=== PATIENT | male | born 1955 | race Caucasian/White ===

== ENCOUNTER 2024-07-24 09:47 | Emergency (ER) | payer OTHER, MEDICARE, SELFPAY ==
[2024-07-24 09:59] VITALS: BP 141/72; PULSE 73; RESP 18; TEMP 36.4; O2SAT 97
--- NOTE | 2024-07-24 10:31 | ED.SKABFB ---
HPI - Skin/Abscess/Foreign Bdy General Chief complaint: Skin/Abscess/Foreign Body Stated complaint: INSECT BITES ON LEGS Time Seen by Provider: 07/24/24 10:15 Source: patient Mode of arrival: ambulatory Limitations: no limitations History of Present Illness HPI narrative: Artemio is an 68-year-old male patient presenting to the clinic today with complaints possible insect bites all over his legs and on his right upper arm. He reports that these are very itchy. 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 Related Data Home Medications Medication Instructions Recorded Confirmed allopurinol 300 mg tablet mg 07/24/24 apremilast 30 mg tablet (Otezla) mg PO 07/24/24 hydrochlorothiazide 12.5 mg tablet mg 07/24/24 lisinopril 40 mg tablet mg 07/24/24 simvastatin 10 mg tablet mg 07/24/24 Allergies Allergy/AdvReac Type Severity Reaction Status Date / Time No Known Allergies Allergy Verified 07/24/24 10:13 Review of Systems Review of Systems: Pertinent positives per HPI. Patient denies any fever, chills, rash, headache, visual changes, dizziness, cough, runny nose, sore throat, shortness of breath, chest pain, palpitations, nausea, vomiting, diarrhea, constipation, abdominal pain, or any urinary issues. PMFSH Comments At the time of my signature, I reviewed and agree with the nursing past medical, surgical, social, and family history. There is no relevant family history pertinent to the patient complaint. Exam Narrative: General: Well-developed, well nourished, in no apparent distress Head: Normocephalic, atraumatic. Cardio: Regular rate and rhythm, s1 and s2 normal, no murmur appreciated. Resp: Clear to auscultation bilaterally, no rhonchi, rales, wheezing or rubs. Integumentary: [place], warm, and dry, red raised itchy papular bumps all over legs and on his right elbow, no drainage Course Course Emergency Course: Portions of this record may have been created with voice recognition software. Level of Care: Express Care Visit Vital Signs Vital signs: Vital Signs Temperature 36.4 C L 07/24/24 09:59 Pulse Rate 73 07/24/24 09:59 Respiratory Rate 18 07/24/24 09:59 Blood Pressure 141/72 H 07/24/24 09:59 Pulse Oximetry 97 07/24/24 09:59 Oxygen Delivery Room Air 07/24/24 09:59 Temperature 36.4 C L 07/24/24 09:59 Pulse Rate 73 07/24/24 09:59 Respiratory Rate 18 07/24/24 09:59 Blood Pressure 141/72 H 07/24/24 09:59 Pulse Oximetry 97 07/24/24 09:59 Oxygen Delivery Room Air 07/24/24 09:59 Vital signs reviewed MDM - Skin/Abscess/Foreign Bdy MDM Narrative Medical decision making narrative: At the time of visit patient is resting comfortably on the exam table. Patient appears to be nontoxic. Plan: I suspect patient has contact dermatitis/possible hive-like reaction. Will place patient on 10 day course prednisone, triamcinolone cream and recommend he take Pepcid. He also may take Benadryl as needed for the itching. Supportive measures were discussed with the patient and they voiced understanding discharge instructions and agrees to treatment plan. Return precautions reviewed Differential Diagnosis Differential diagnosis: Likely abscess of skin or subcutaneous tissue, viral exanthem, dermatophytosis, urticaria, herpes zoster, allergic reaction to drug, cellulitis, eczema, insect bites, impetigo and contact dermatitis Discharge Plan Discharge Clinical Impression: Contact dermatitis Patient Disposition: Home, Self-Care Condition: Stable Instructions: Antibiotic Form, Contact Dermatitis (ED) Additional Instructions: Apply triamcinolone cream as directed Take prednisone as directed Avoid hot showers May apply calamine lotion to rash Avoid scratching and this causes rash to spread May take benadryl 25-50mg every 6 hours as needed for itching. May take 20-40 mg of famotidine daily-this is a histamine jose luis and may he
== END 2024-07-24 10:48 | disposition home or self-care (01) ==
PROVIDERS: Emergency Provider Nurse Practitioner Family; PCP Internal Medicine
DX: L25.9 Unspecified contact dermatitis, unspecified cause (principal); E78.00 Pure hypercholesterolemia, unspecified; I10 Essential (primary) hypertension; L40.50 Arthropathic psoriasis, unspecified
CPT/HCPCS: 99213; G0463

== ENCOUNTER 2025-02-24 09:48 | Emergency (ER) | payer OTHER, MEDICARE, SELFPAY ==
--- NOTE | ~2025-02-24 | XR_ITS ---
EXAMINATION: XR shoulder RT min 2V DATE: 02/24/2025 10:17 INDICATION: Anterior right shoulder pain post fall TECHNIQUE: AP internally and externally rotated, AP oblique externally rotated and transscapular Y vi ews of the right shoulder were obtained. COMPARISON: None FINDINGS: Normal alignment. No fracture.Mild glenohumeral osteoarthritis with cephalad predominant mild nonuni form joint space narrowing. Moderate acromioclavicular osteoarthritis with small inferiorly directed osteophytes. There are is also a small subacromial spur. Soft tissues are unremarkable. Visualized po rtion of the right lung are clear with no evident pleural effusion. IMPRESSION: Mild right glenohumeral and moderate acromioclavicular osteoarthritis. No acute osseous abnormality. Reviewed, dictated and finalized at location A.
--- NOTE | 2025-02-24 09:55 | ED.UPPEXIN ---
HPI - Extremity Injury (Upper) General Chief Complaint: Extremity Injury, Upper Stated Complaint: fall Time Seen by Provider: 02/24/25 09:55 Source: patient Mode of arrival: ambulatory Limitations: no limitations History of Present Illness HPI narrative: Artemio is a 69-year-old male patient presenting to the clinic today with complaints of right shoulder/humerus pain after falling around 9:00 a.m. this morning. He reports he fell on the Thursday ground. States he was caring and some wound and tripped and landed on the right side. He denies any other injury. Related Data Home Medications ?Medication ?Instructions ?Recorded ?Confirmed ?Last Taken ?Type allopurinol 300 mg tablet mg 07/24/24 Unknown History apremilast 30 mg tablet (Otezla) mg PO 07/24/24 Unknown History hydrochlorothiazide 12.5 mg tablet mg 07/24/24 Unknown History lisinopril 40 mg tablet mg 07/24/24 Unknown History simvastatin 10 mg tablet mg 07/24/24 Unknown History Allergies Allergy/AdvReac Type Severity Reaction Status Date / Time No Known Allergies Allergy Verified 02/24/25 09:49 Review of Systems Review of Systems: Pertinent positives per HPI. Patient denies any fever, chills, rash, headache, visual changes, dizziness, cough, shortness of breath, chest pain, palpitations, nausea, vomiting, diarrhea, constipation, abdominal pain, or any urinary issues. PMFSH Comments At the time of my signature, I reviewed and agree with the nursing past medical, surgical, social, and family history. There is no relevant family history pertinent to the patient complaint. Exam Narrative: General: Well-developed, well nourished, in no apparent distress Head: Normocephalic, atraumatic. Cardio: Regular rate and rhythm, s1 and s2 normal, no murmur appreciated. Resp: Clear to auscultation bilaterally, no rhonchi, rales, wheezing or rubs. Musculoskeletal: No deformity, tender to palpation over the right anterior shoulder and the right proximal humerus, unable to lift his arm above his head without significant pain, does have good range of motion with posterior reach and cross-arm, muscle strength strong and equal, peripheral pulse strong, no edema, no cyanosis, normal gait and station Course Course Emergency Course: Portions of this record may have been created with voice recognition software. Level of Care: Express Care Visit Vital Signs Vital signs: Vital Signs Temperature 36.3 C L 02/24/25 10:04 Pulse Rate 71 02/24/25 10:04 Respiratory Rate 16 02/24/25 10:04 Blood Pressure 141/69 H 02/24/25 10:04 Pulse Oximetry 97 02/24/25 10:04 Oxygen Delivery Room Air 02/24/25 10:04 Temperature 36.3 C L 02/24/25 10:04 Pulse Rate 71 02/24/25 10:04 Respiratory Rate 16 02/24/25 10:04 Blood Pressure 141/69 H 02/24/25 10:04 Pulse Oximetry 97 02/24/25 10:04 Oxygen Delivery Room Air 02/24/25 10:04 Vital signs reviewed MDM - Extremity Injury (Upper) MDM Narrative Medical decision making narrative: At the time of visit patient is resting comfortably on the exam table. Patient appears to be nontoxic. Diagnostics: X-ray of the right shoulder is negative for any sign of fracture or malalignment. Does show glenohumeral and AC joint osteoarthritis Plan: I suspect patient has a right shoulder strain/osteoarthritis. Supportive measures were discussed with the patient and they voiced understanding discharge instructions and agrees to treatment plan. Return precautions reviewed Differential Diagnosis Differential diagnosis: Likely dislocation of shoulder, fracture of humerus and other (Shoulder sprain, shoulder contusion) Imaging Data Radiologist's impression: ITS Impressions Shoulder X-Ray 02/24/25 10:24 IMPRESSION: Mild right glenohumeral and moderate acromioclavicular osteoarthritis. No acute osseous abnormality. Discharge Plan Discharge Clinical Impression: Osteoarthritis of AC (acromioclavicular) joint Sprain of right shoulder Qualifiers: Encounter type: initial encounter Shoulder sprain type: unspecified sprain Qualified Code(s): S43.401A - Unspecified sprain of right shoulder joint, initial encounter Patient Disposition: Home, Self-Care Condition: Stable Instructions: Antibiotic Form Additional Instructions: X-rays negative for any sign of fracture or malalignment of the right shoulder. You do have some AC joint osteoarthritis May wear arm sling for 3 days for comfort Rest and ice Tylenol/motrin for pain as discussed. May apply Aspercreme, blue emu, or lidocaine to the affected area to help alleviate pain Follow up with your PCP if symptoms persist more than 1 week. Patient Language: Colombian Prescriptions: No Action simvastatin 10 mg tablet allopurinol 300 mg tablet lisinopril 40 mg tablet hydrochlorothiazide 12.5 mg tablet Otezla 30 mg tablet PO prednisone 10 mg tablet 10 mg PO DAILY Qty: 30 0RF Rx Instructions: 60mg po daily on day 1, 40mg po daily on days 2-4, 30mg po daily on days 5-6, 20mg po daily on days 7-8, 10mg po daily on days 9-10 triamcinolone acetonide 0.1 % cream 1 applic topical BID 7 Days Qty: 30 0RF Follow-up/Referrals: [place],Braeden Heath MD [Primary Care Provider] - Time of Disposition: 10:29 Quality NIHSS Nursing Documentation ED NIHSS nursing documentation: reviewed/agree
[2025-02-24 10:04] VITALS: BP 141/69; PULSE 71; RESP 16; TEMP 36.3; O2SAT 97
--- OUTSIDE RECORDS SUMMARY | 2025-02-24 10:04 | XMS_ITS | Continuity of Care Document ---
Author Organization [facility] Address [address] [place] [address] Phone Care Team Providers Care Door Operator Name Role Phone Braeden Macdonald MD Unavailable Unavailable Allergies, Adverse Reactions, Alerts Substance Reaction Status Criticality No Known Drug Allergies Other Active No I nformation Medications Medication Instructions Dosage Effective Dates (start - stop) Status Comments AndroGel 20.25 mg/1.25 gram per pump act. (1.62 %) transdermal gel apply 1 pump to each upper arm and shoulders daily ( 2 pumps/day) - Active 75gm bottle/month ; faxed to [facility] [phone] allopurinol 300 mg tablet take 1.5 tablet by oral route every day 450 MG - Active hydrochlorothiazide 12.5 mg tablet take 1 tablet by oral route every day 12.5 MG - Active simvastatin 10 mg tablet take 1 tablet b y oral route every day in the evening 10 MG - Active lisinopril 40 mg tablet take 1 tablet by oral route every day 40 MG - Active sildenafil 50 mg tablet take 1 tablet by oral route every day as needed approximately 1 hour before sexual activity 50 MG - Active Patient to use Good Rx BIN [id number]; PCN GDC; GRP DR33; Otezla 30 mg tablet take 1 tablet by oral route every day - Active AndroGel 20.25 mg/1.25 gram per pump act. (1.62 %) transdermal gel apply 1 pump to each upper arm and shoulders daily ( 2 pumps/day) - No Longer Active 75gm bottle/month ; faxed to [facility] [phone] Procedures Procedure Date ROUTINE VENIPUNCTURE IL Pt inelig neg scrn depres FALL RISK ASSESSMENT DOC'D PRES/ABSN URINE INCON ASSESS PREVENTATIVE-EST: 65 & OVER BODY MASS INDEX DOCD SYST BP LT 130 MM HG DIAST BP < 80 MM HG IMMUN ADMIN (INC PERCUTANEOUS) SINGLE, F IRST INJ RIV3 VACCINE NO PRESERV IM CBC, INC PLATELETS AND DIFFERENTIAL COMPREHEN METABOLIC PANEL CMP 4 LIPID PANEL PSA, TOTAL TESTOSTERONE, TOTAL URIC ACID, (S) BASIC METABOLIC PANEL(BMP) CBC, INC PLATELETS AND DIFFERENTIAL TESTOSTERONE, TOTAL Pt inelig neg scrn depres OFFICE [id number] BODY MASS INDEX DOCD SYST BP >= 140 MM HG6 IT DIAST BP < 80 MM HG ROUTINE VENIPUNCTURE IL CBC, INC PLATELETS AND DIFFERENTIAL TESTOSTERONE, TOTAL ROUTINE VENIPUNCTURE IL CBC, INC PLATELETS AND DIFFERENTIAL COMPREHEN METABOLIC PANEL CMP 3 LIPID PANEL PSA, TOTAL TESTOSTERONE, TOTAL URIC ACID, (S) FALL RISK ASSESSMENT DOC'D PRES/ABSN URINE INCON ASSESS Pt inelig neg scrn depres IMMUN ADMIN (INC PERCUTANEOUS) SINGLE, F IRST INJ Flu Vac, quad (RIV4), Preservative And A ntibiotic Free IM IMMUN ADMIN (INC PERCUTANEOUS) EACH ADDT L Pneumococcal Conjugate Vaccine (PCV20) S PREVENTATIVE-EST: 65 & OVER BODY MASS INDEX DOCD SYST BP GE 130 - 139MM HG DIAST BP < 80 MM HG ROUTINE VENIPUNCTURE IL Pt inelig neg scrn depres OFFICE [id number] BODY MASS INDEX DOCD SYST BP >= 140 MM HG6 IT DIAST BP < 80 MM HG Pt inelig neg scrn depres FALL RISK ASSESSMENT DOC'D PRES/ABSN URINE INCON ASSESS PREVENTATIVE-EST: 65 & OVER BODY MASS INDEX DOCD SYST BP >= 140 MM HG6 IT DIAST BP 80-89 MM HG IMMUN ADMIN (INC PERCUTANEOUS) SINGLE, F IRST INJ Flu Vac, quad (RIV4), Preservative And A ntibiotic Free IM CBC, INC PLATELETS AND DIFFERENTIAL COMPREHEN METABOLIC PANEL CMP HEMOGLOBIN A1C HGA1C, GLYCO LIPID PANEL PSA, TOTAL TESTOSTERONE, TOTAL URIC ACID, (S) ROUTINE VENIPUNCTURE Pt inelig neg scrn depres OFFICE [id number] BODY MASS INDEX DOCD SYST BP GE 130 - 139MM HG DIAST BP < 80 MM HG ANTINUCLEAR ANTIBODIES (SOPHY) BASIC METABOLIC PANEL(BMP) CYCLIC CITRULLINE PEPTIDE (CCP) 022 HEMOGLOBIN A1C HGA1C, GLYCO RHEUMATOID FACTOR: QN RBC SED RATE, AUTOMATED URIC ACID, (S) ROUTINE VENIPUNCTURE TESTOSTERONE, TOTAL ROUTINE VENIPUNCTURE IMMUN ADMIN (INC PERCUTANEOUS) SINGLE, F IRST INJ FLU VAC NO PRSV 4 ENZO, 0.5mL DOSAGE Pt inelig neg scrn depres PREVENTATIVE-EST: 40-64 BODY MASS INDEX DOCD SYST BP >= 140 MM HG6 IT DIAST BP < 80 MM HG CBC, INC PLATELETS AND DIFFERENTIAL COMPREHEN METABOLIC PANEL CMP LIPID PANEL PSA, TOTAL ROUTINE VENIPUNCTURE HEMOGLOBIN A1C HGA1C, GLYCO URIC ACID, (S) TESTOSTERONE, TOTAL Pt inelig neg scrn depres OFFICE [id number] BODY MASS INDEX DOCD SYST BP GE 130 - 139MM HG DIAST BP < 80 MM HG BASIC METABOLIC PANEL(BMP) TESTOSTERONE, TOTAL URIC ACID, (S) ROUTINE VENIPUNCTURE BASIC METABOLIC PANEL(BMP) URIC ACID, (S) ROUTINE VENIPUNCTURE IMMUN ADMIN (INC PERCUTANEOUS) SINGLE, F IRST INJ FLU VAC NO PRSV 4 ENZO, 0.5mL DOSAGE Pt inelig neg scrn depres PREVENTATIVE-EST: 40-64 BODY MASS INDEX DOCD SYST BP GE 130 - 139MM HG DIAST BP < 80 MM HG CBC, INC PLATELETS AND DIFFERENTIAL COMPREHEN METABOLIC PANEL CMP 0 LIPID PANEL PSA, TOTAL TESTOSTERONE, TOTAL URIC ACID, (S) ROUTINE VENIPUNCTURE Pt inelig neg scrn depres BASIC METABOLIC PANEL(BMP) URIC ACID, (S) ROUTINE VENIPUNCTURE OFFICE [id number] BODY MASS INDEX DOCD SYST BP GE 130 - 139MM HG DIAST BP 80-89 MM HG Pt inelig neg scrn depres IMMUN ADMIN (INC PERCUTANEOUS) SINGLE, F IRST INJ FLU VAC NO PRSV 4 ENZO, 0.5mL DOSAGE PREVENTATIVE-EST: 40-64 BODY MASS INDEX DOCD SYST BP GE 130 - 139MM HG DIAST BP < 80 MM HG CBC, INC PLATELETS AND DIFFERENTIAL COMPREHEN METABOLIC PANEL [facility] 9 HEMOGLOBIN A1C HGA1C, GLYCO LIPID PANEL PSA, TOTAL URIC ACID, (S) ROUTINE VENIPUNCTURE Advance Directives Directive Yes / No Effective Date File Name Life Support Not Answered N/A N/A Intubation Not Answered N/A N/A Antibiotics Not Answered N/A N/A IV Fluid Support Not Answered N/A N/A Tube Feed Not Answered N/A N/A Other Directive N/A N/A WARNING:The information contained in this section is historical and is provided for information only and does not constitute a legal document or any assurance that the information is still accurate. Please verify the information with the almodovar of the legal document before using it for clinical purposes. Encounters Encounter Description Practice Location Reason(s) For Visit Diagnoses Date Provider Providers Copied on Encounter [facility], [address], [place], [place], [address] , [place] tel: [phone] [facility] No Information 5 English Deras. [address] [place], [place], [id number], [place]. tel:[phone] [facility], [address], [place], [place], [address] , [place] tel: [phone] [facility] No Information 4 English Deras. [address] [place], [place], [address], [place]. tel:[phone] PREVENTATIVE -EST: 65 & OVER [facility], [address], [place], [place], [address] , [place] tel: [phone] [facility] PX (chief complaint) Annual physical examScreening PSA (prostate specific antigen)Other testicular hypofunctionGout, unspecified cause, unspecified chronicity, unspecified siteBenign essential hypertensionPsori atic arthritisBody mass index [BMI] 30.0-30.9, adultEncounter for immunization 4 English Deras. [address] [place], [place], [address], [place]. tel:[phone] Referring Provider: [place], [address] . tel:[phone] [facility], [address], [place], [place], [address] , tel: [phone] [facility] No Information [address] [place] [address], [id number], [place]. tel:[phone] Referring Provider: [place], [address] . tel:[phone] [facility], [address], [place], [place], [address] , tel: [phone] [facility] Blood tests for routine general physical examinationBenign essential hypertension 4 English Deras. [address] [place], [place], [address], . tel:[phone] [facility], [address], [place], [place], [address] , tel: [phone] [facility] No Information 4 English Deras. [address] [place], [place], [address], . tel:[phone] [email or web address] [facility], [address], [place], [place], [address] , tel: [phone] [facility] No Information 4 Abraham Akil. [address] [place] [address], [id number], [place]. tel:[phone] Referring Provider: Braeden Macdonald, [address] [place], [address] . tel:[phone] OFFICE SUFME-ZYU-KF TAILED [facility], [address], [place], [place], [address] , tel: [phone] [facility] Chr conditions (chief complaint) Body mass index [BMI] 31.0-31.9, adultTesticular hypofunctionBenig n essential hypertensionPsori atic arthritisGout, unspecified cause, unspecified chronicity, unspecified siteChange in bowel habits 4 English Deras. [address] [place], [place], [address], [place]. tel:[phone] Referring Provider: [place], [address] . tel:[phone] [email or web address] [facility], [address], [place], [place], [address] , tel: [phone] [facility] No Information 3 Abraham Akil. [address], [id number], . tel:[phone] Referring Provider: [place], [address] . tel:[phone] [facility], [address], [place], [place], [address] , tel:[phone] [facility] Abnormal CBCTesticular hypofunction 3 English Deras. [address] [place], [place], [address], . tel:[phone] Referring Provider: Braeden Macdonald, [place], [address] . tel:[phone] [facility], [address], [place], [place], [address] , tel:[phone] [facility] No Information 3 Abraham Barnard. [address] [place] [address], [id number], . tel:[phone] Referring Provider: Braeden Macdonald, [place], [address] . tel:[phone] PREVENTATIVE -EST: 65 & OVER [facility], [address], [place], [place], [address] , tel:[phone] [facility] px (chief complaint) Body mass index [BMI] 29.0-29.9, adultEncounter for general adult medical examination without abnormal findingsGout, unspecified cause, unspecified chronicity, unspecified siteOther testicular hypofunctionBenig n essential hypertensionPsori atic arthritis 3 English Deras. [address] [place], [address], [place]. tel:[phone] Referring Provider: [place], [address] . tel:[phone] OFFICE MEFHG-[id number]-EH TAILED [facility], [address], [place], [place], [address] , tel: [phone] [facility] Chronic conditions (chief complaint)c hronic conditinss (chief complaint) Body mass index [BMI] 32.0-32.9, adultBenign essential hypertensionOther testicular hypofunctionPsori atic arthritis Feb-0 3 English Deras. [address] [place], [place], [address], [place]. tel:[phone] Referring Provider: [place], [address] . tel:[phone] [employer], [address], [place], [place], [address] , [place] tel: [phone] [facility] No Information 2 English Deras. [address] [place], [place], [address], [place]. tel:[phone] PREVENTATIVE -EST: 65 & OVER [employer], [address], [place], [place], [address] , [place] tel: [phone] [facility] preventive exam (chief complaint)p x (chief complaint) Body mass index [BMI] 32.0-32.9, adultEncounter for general adult medical examination without abnormal findingsGout, unspecified cause, unspecified chronicity, unspecified siteArthralgia, unspecified jointPsoriasisBen ign essential hypertensionEncou nter for screening for malignant neoplasm of colon 2 English Deras. [address] [place], [place], [address], [place]. tel:[phone] Referring Provider: Braeden Macdonald, [place], [address] . tel:[phone] [facility], [address], [place], [place], [address] , [place] tel: [phone] [facility] Benign essential hypertensionHyper glycemiaChronic gout without tophus, unspecified cause, unspecified siteHyperlipidemi a, unspecified hyperlipidemia typeScreening for prostate cancerOther testicular hypofunction 2 English Deras. [address] [place], [place], [address], [place]. tel:[phone] Referring Provider: Braeden Macdonald, [address] [place], [address] . tel:[phone] OFFICE [id number]-UZQ-WA TAILED [facility], [address], [place], [place], [address] , [place] tel: [phone] [facility] 6 mo followup of chronic conditions (chief complaint)C hronic Conditions (chief complaint) Gout, unspecified cause, unspecified chronicity, unspecified siteBenign hypertensionPure hypercholesterole miaOther testicular hypofunctionBody mass index [BMI] 30.0-30.9, adultPsoriasisArt hralgia, unspecified joint Mar-2 2 Cochran Kimberlee. [address] [place], [place], [address], . tel:[phone] Referring Provider: [place], [address] . tel:[phone] [facility], [address], [place], [place], [address] , tel: [phone] [facility] Other testicular hypofunction Sep-0 1 English Deras. [address] [place] [address], [id number], . tel:[phone] Referring Provider: [place], [address] . tel:[phone] PREVENTATIVE -EST: 40-64 [facility], [address], [place], [place], [address] , tel: [phone] [facility] px (chief complaint) Encounter for general adult medical examination without abnormal findingsOther testicular hypofunctionBenig n hypertensionGout, unspecified cause, unspecified chronicity, unspecified sitePure hypercholesterole miaBody mass index (BMI) 29.0-29.9, adult Sep- 1 English Deras. [address] [place], [address], . tel:[phone] Referring Provider: [place], [address] . tel:[phone] [facility], [address], [place], [place], [address] , tel: [phone] [facility] Benign hypertensionPure hypercholesterole miaSpecial screening for malignant neoplasm of prostateGout, unspecified cause, unspecified chronicity, unspecified siteHyperglycemia , unspecifiedOther testicular hypofunction Sep- 1 English Deras. [address] [place], [place], [address], . tel:[phone] Referring Provider: [place], [address] . tel:[phone] OFFICE KLLNN-YYX-XL TAILED [facility], [address], [place], [place], [address] , tel: [phone] Marg[facility] 6 mo chronic conditions (chief complaint)C hronic Conditions (chief complaint) Gout, unspecified cause, unspecified chronicity, unspecified siteBenign hypertensionOther and unspecified hyperlipidemiaOth er testicular hypofunctionBody mass index (BMI) 30.0-30.9, adult Mar-3 - 1 Dimas Mohan. [address] [place], [place], [address], . tel:[phone] Referring Provider: Braeden Macdonald [address] [place], [address] . tel:[phone] [facility], [address], [place], [place], [address] , tel: [phone] [facility] No Information Jan-2 1 English Deras. [address] [place] [address], [id number], . tel:[phone] [facility], [address], [place], [place], [address] , tel: [phone] [facility] Benign hypertensionGout, unspecified cause, unspecified chronicity, unspecified site Jul-2 0 English Deras. [address] [place], [place], [address], . tel:[phone] Referring Provider: [place], [address] . tel:[phone] PREVENTATIVE -EST: 40-64 [facility], [address], [place], [place], [address] , tel: [phone] [facility] PX (chief complaint) Encounter for general adult medical examination without abnormal findingsGout, unspecified cause, unspecified chronicity, unspecified siteOther testicular hypofunctionBenig n hypertensionOther and unspecified hyperlipidemiaBod y mass index (BMI) 30.0-30.9, adultDupuytren's contracture of both hands Jul- 0 English Deras. [address] [place], [address], [place]. tel:[phone] Referring Provider: [place], [address] . tel:[phone] [facility], [address], [place], [place], [address] , tel: [phone] [facility] Benign hypertensionPure hypercholesterole miaOther testicular hypofunctionGout, unspecified cause, unspecified chronicity, unspecified siteEncounter for blood test for routine general physical examinationScreen ing for prostate cancerEncounter for long-term (current) use of other medications 0 English Deras. [address] [place], [address], . tel:[phone] Referring Provider: [place], [address] . tel:[phone] OFFICE LZADN-KIK-WS TAILED [employer], [address], [place], [place], [address] , tel: [phone] [facility] Chronic conditions (chief complaint) Body mass index (BMI) 31.0-31.9, adultBenign hypertensionGout, unspecified cause, unspecified chronicity, unspecified siteOther and unspecified hyperlipidemiaOth er testicular hypofunctionPsori asis 0 English Deras. [address] [place], [address], [place]. tel:[phone] Referring Provider: [place], [address] . tel:[phone] PREVENTATIVE -EST: 40-64 [employer], [address], [place], [place], [address] , tel: [phone] [facility] PX (chief complaint) Body mass index (BMI) 31.0-31.9, adultAdult general medical examBenign hypertensionGout, unspecified cause, unspecified chronicity, unspecified siteOther and unspecified hyperlipidemiaSki n lesion English Dears. [address] [place], [place], [address], . tel:[phone] Referring Provider: Braeden Macdonald, [place], [address] . tel:[phone] [employer], [address], [place], [place], [address] , tel: [phone] [facility] HyperglycemiaBeni gn hypertensionGout, unspecified cause, unspecified chronicity, unspecified siteOther and unspecified hyperlipidemiaAdu lt general medical examScreening for malignant neoplasm of prostate English Dersa. [address] [place], [address], . tel:[phone] Referring Provider: [place], [address] . tel:[phone] [facility], [address], [place], [place], [address] , tel: [phone] [facility] Chronic gout without tophus, unspecified cause, unspecified siteEssential (primary) hypertensionOther and unspecified hyperlipidemiaPso riasis English Deras. [address] [place], [address], . tel:[phone] Referring Provider: [place], [address] . tel:[phone] [facility], [address], [place], [place], [address] , tel: [phone] [facility] Encounter for general adult medical examination without abnormal findingsChronic gout without tophus, unspecified cause, unspecified siteOther and unspecified hyperlipidemiaOth er testicular hypofunctionEssen tial (primary) hypertension 8 English Deras. [address] [place], [address], . tel:[phone] Referring Provider: [place], [address] . tel:[phone] [facility], [address], [place], [place], [address] , tel: [phone] [facility] Benign hypertensionGout, unspecified cause, unspecified chronicity, unspecified siteOther and unspecified hyperlipidemiaScr eening for malignant neoplasm of prostateEncounter for long-term (current) use of other medications English Deras. [address] [place], [address], [place]. tel:[phone] Referring Provider: [place], [address] . tel:[phone] [facility], [address], [place], [place], [address] , tel: [phone] [facility] Body mass index (BMI) 31.0-31.9, adultOlecranon bursitis of right elbowBenign essential hypertensionGout, unspecified cause, unspecified chronicity, unspecified siteTrigger little finger of right handTrigger finger, left little finger English Deras. [address] [place], [address], [place]. tel:[phone] Referring Provider: [place], [address] . tel:[phone] [facility], [address], [place], [place], [address] , tel: [phone] [facility] Gout, unspecified cause, unspecified chronicity, unspecified site English Deras. [address] [place], [address], [place]. tel:[phone] Referring Provider: [place], [address] . tel:[phone] [facility], [address], [place], [place], [address] , tel: [phone] [facility] Chronic gout without tophus, unspecified cause, unspecified siteLong term use of drug English Deras. [address] [place], [address], [place]. tel:[phone] Referring Provider: Braeden Macdonald, [place], [address] . tel:[phone] [employer], [address], [place], [place], [address] , tel: [phone] [facility] Other testicular hypofunctionBenig n essential hypertensionHyper lipidemia, unspecified hyperlipidemia typeChronic gout without tophus, unspecified cause, unspecified site 8 English Deras. [address] [place], [address], [place]. tel:[phone] Referring Provider: Braeden Macdonald, [place], [address] . tel:[phone] [facility], [address], [place], [place], [address] , tel: [phone] [facility] Gout of ankle, unspecified cause, unspecified chronicity, unspecified lateralityOlecran on bursitis of right elbow English Deras. [address] [place], [address], . tel:[phone] Referring Provider: [place], [address] . tel:[phone] [facility], [address], [place], [place], [address] , tel: [phone] [facility] Left ankle pain, unspecified chronicity English Deras. [address] [place], [address], [place]. tel:[phone] Referring Provider: [place], [address] . tel:[phone] [email or web address] [facility], [address], [place], [place], [address] , tel: [phone] [facility] Encounter for general adult medical examination without abnormal findingsBenign essential hypertensionOther testicular hypofunctionPsori asis of nail English Deras. [address] [place], [address], [place]. tel:[phone] Referring Provider: Braeden Macdonald, [address] [place], [address] . tel:[phone] [facility], [address], [place], [place], [address] , tel: [phone] [facility] Other testicular hypofunctionBenig n essential hypertensionHyper lipidemia, unspecified hyperlipidemia typePsoriasis of nailSnoring 7 English Deras. [address] [place], [place], [address], . tel:[phone] Referring Provider: Braeden Macdonald, [address] [place], [address] . tel:[phone] [email or web address] [facility], [address], [place], [place], [address] , tel: [phone] [facility] Other testicular hypofunction 6 Johan Brito. [address] [place], [place], [address], [place]. tel:[phone] Referring Provider: Daryl Merino, [address] [place], [address] . tel:[phone] [facility], [address], [place], [place], [address] , tel: [phone] [facility] Elevated fasting glucoseHyperchole sterolemiaBenign essential hypertensionTinea unguiumTesticular hypofunctionEncou nter for general adult medical examination without abnormal findingsAbrasionS noringEncounter for immunizationSpeci al screening for malignant neoplasm of colon 6 Johan Brito. [address] [place], [place], [address], [place]. tel:[phone] Referring Provider: Daryl Merino, [address] [place], [address] . tel:[phone] [facility], [address], [place], [place], [address] , tel: [phone] [facility] Benign essential hypertensionEncou nter for long-term (current) use of other medicationsElevat ed fasting glucoseHyperchole sterolemiaOther testicular hypofunctionSpeci al screening for malignant neoplasm of prostate May- 8 6 Johan Brito. [address] [place], [place], [address], [place]. tel:[phone] Referring Provider: Daryl Merino, [address] [place], [address] . tel:[phone] [facility] [address], [place], [place], [address] , tel: [phone] [place] Essential (primary) hypertensionPure hypercholesterole miaTesticular hypofunctionGastr oesophageal reflux disease without esophagitisPsoria sis of nail Dec-0 5 Nicolette Wu. [facility] [place], [address], [place]. tel:[phone] Referring Provider: Daryl Merino, [address] [place], [address] . tel:[phone] [facility] [address], [place], [place], [address] , tel: [phone] [place] Benign essential hypertensionDerma tophytosis of nail Naveed-0 5 Nicolette Wu. [facility] [place], [address], [place]. tel:[phone] Referring Provider: Daryl Merino, [address] [place], [address] . tel:[phone] [facility] [place] [address], [place], [place], [address] , tel: [phone] [place] Routine general medical examination at a health care facilityHypertens ion, BenignHypercholes terolemiaPalpitat ionsSpecial screening for malignant neoplasm of colonSpecial screening for malignant neoplasm of prostateEncounter for long-term (current) use of other medicationsElevat ed fasting glucose Mar-0 3201 5 Johan Brito. [address] [place], [place], [id number], [place]. tel:[phone] Referring Provider: Daryl Merino, [address] [place], [address] . tel:[phone] [facility], [address], [place], [place], [address] , tel: [phone] [place] Hypertension, BenignHypercholes terolemiaOther testicular hypofunctionGout, unspecified 4 Nicolette Wu. [address] [place], [address], [place]. tel:[phone] Referring Provider: Daryl Merino, [address] [place], [address] . tel:[phone] [facility], [address], [place], [place], [address] , tel: [phone] [place] Benign essential hypertensionOther and unspecified hyperlipidemiaOny chomycosis 3 Johan Brito. [address] [place], [place], [address], [place]. tel:[phone] Referring Provider: Daryl Merino, [address] [place], [address] . tel:[phone] [facility], [address], [place], [place], [address] , tel: [phone] [place] Long-term (current) use of other medicationsOnycho mycosis 3 Johan Brito. [address] [place] [address], [id number], [place]. tel:[phone] Referring Provider: Daryl Merino, [address] [place], [address] . tel:[phone] [facility], [address], [place], [place], [address] , tel: [phone] [facility] TESTICULAR HYPOFUNC NECBENIGN HYPERTENSIONOnych omycosisRoutine general medical [facility] general medical examination at a health care facilityLong-term (current) use of other medications 3 Johan Brito. [address] [place], [address], [place]. tel:[phone] Referring Provider: Daryl Merino, [address] [place], [address] . tel:[phone] [facility], [address], [place], [place], [address] , [place] tel: [phone] [place] Other and unspecified hyperlipidemiaUns pecified essential hypertensionLong- term (current) use of other medicationsScreen ing for malignant neoplasms of the prostateElevated fasting glucose 3 Johan Brito. [address] [place], [place], [address], [place]. tel:[phone] Referring Provider: Daryl Merino, [address] [place], [address] . tel:[phone] [facility], [address], [place], [place], [address] , tel: [phone] [facility] BENIGN HYPERTENSIONTESTI CULAR HYPOFUNC NECGout, unspecifiedOnycho mycosis due to dermatophyteOther and unspecified hyperlipidemia 2 Nicolette Wu. [address] [place], [address], [place]. tel:[phone] Referring Provider: Daryl Merino, [address] [place], [address] . tel:[phone] [facility], [address], [place], [place], [address] , tel: [phone] [place] BENIGN HYPERTENSIONTESTI CULAR HYPOFUNC NECPURE HYPERCHOLESTEROLE MOnychomycosis 2 Johan Brito. [address] [place], [address], [place]. tel:[phone] Referring Provider: Daryl Merino, [address] [place], [address] . tel:[phone] [facility], [address], [place], [place], [address] , tel: [phone] [place] Other and unspecified hyperlipidemiaLon g-term (current) use of other medicationsImpote nce of organic originScreening for malignant neoplasms of the prostateRoutine general medical examination at a health care facility 2 Johan Brito. [address] [place], [address], [place]. tel:[phone] Referring Provider: Daryl Merino, [address] [place], [address] . tel:[phone] [facility], [address], [place], [place], [address] , [place] tel: [phone] [place] Special screening for malignant neoplasms, colon Feb- 0201 2 [facility] Jazmin. [facility] [place], [address], [place]. tel:[phone] [facility] [employer], [address], [place], [place], [address] , [place] tel: [phone] Marg[place] Benign essential hypertensionPure hypercholesterole miaTESTICULAR HYPOFUNC NECGout, unspecifiedLONG-T ERM USE MEDS NECHYPERLIPIDEMIA NEC/NOS 1 Armanny Wu. [facility] [place], [address], [place]. tel:[phone] Referring Provider: Daryl Merino, [address] [place], [address] . tel:[phone] [facility], [address], [place], [place], [address] , [place] tel: [phone] [place] LONG-TERM USE MEDS NEC 1 [facility] Jazmin. [facility] [place], [address], [place]. tel:[phone] [employer], [address], [place], [place], [address] , [place] tel: [phone] [place] PURE HYPERCHOLESTEROLE MABN BLOOD CHEMISTRY NECBENIGN HYPERTENSION 1 Johan Brito. [address] [place], [address], [place]. tel:[phone] [facility], [address], [place], [place], [address] , [place] tel:[phone] [place] SCRN MALIG NEOP-PROSTATETEST ICULAR HYPOFUNC NECSCREEN MALIG NEOP-COLON March- 1 Melbalulú BritoLuisana Thomas [place], [address], [place]. tel:[phone] [employer], [address], [place], [place], [address] , tel: [phone] [place] HYPERTENSION NOSHYPERLIPIDEMIA NEC/NOS March- 0-201 1 Melbalulú BritoLuisana Thomas [place], [place], [address], [place]. tel:[phone] [employer], [address], [place], [place], [address] , tel: [phone] [place] IMPOTENCE, ORGANIC ORIGN Oct-0 0 Melbalulú BritoLuisana [address] [place] [address], [id number], [place]. tel:[phone] [employer], [address], [place], [place], [address] , tel: [phone] [place] SCREEN MAL NEOP-RECTUMDERMAT OPHYTOSIS OF NAIL 1-201 0 Melbalulú BritoLuisana [address] [place] [address], [id number], [place]. tel:[phone] [employer], [address], [place], [place], [address] , tel:[phone] [place] CELLULITIS OF HANDINSECT BITE HAND Nov-2 3-200 9 Melbalulú BritoLuisana [address] [place] [address], [id number], [place]. tel:[phone] [employer], [address], [place], [place], [address] , [place] tel: [phone] [facility] PURE HYPERGLYCERIDEMIA Nov-0 5-200 9 Melbalulú BritoLuisana [address] [place] [address], [id number], [place]. tel:[phone] [employer], [address], [place], [place], [address] , tel: [phone] Margarito No Information [address] Johan [address] [place], [address], . tel:[phone] [facility], [address], [place], [place], [address] , tel: [phone] [place] ACUTE SINUSITIS NOS 8 Johan [address] [place], [address], . tel:[phone] [facility], [address], [place], [place], [address] , tel: [phone] Marg[facility] ROUTINE MEDICAL EXAM 4 Johan [address] [place], [place], [address], . tel:[phone] [employer], [address], [place], [place], [address] , tel: [phone] Marg[facility] LATERAL EPICONDYLITIS 0 Johan [address] [place], [address], . tel:[phone] Family History Family Member Type Diagnosis Age At Onset Sister Problem (finding) hypertension Mother Problem (finding) Cardiovascular disease Father Problem (finding) Cardiovascular disease Sister Problem (finding) Alive and well Immunizations Vaccine Date Status Comments Flublok, Trivalent, preservative free, 18+ yrs, 0.5mL dosage administered Source: New Immuniza tion Record Pneumococcal conjugate PCV20 administered Source: New Immunization Record Flublok, quadrivalent, preservative free, 0.5mL dosage administered Source: New Immuniza tion Record SHINGRIX (Zoster vaccine recombinant, adjuvanted) administered Note: Walсветлана' s (date is approximate) ; Source: Public Agency Moderna (Bivalent Booster) COVID Vac, 50mgc/0.5 mL, 18+ years administered Note: Walbryceeens ; So urce: Source Unspecified SHINGRIX (Zoster vaccine recombinant, adjuvanted) administered Note: Dennise ; Source: Source Unspecified Flublok, quadrivalent, preservative free, 0.5mL dosage administered Source: New Immuniza tion Record Fluzone Quad, preservative free, split virus, 0.5mL dosage administered Source: New Immuniza tion Record Moderna COVID19 Vaccine, 0.5 mL per dose, 2 doses, administered 28 days apart administered Note: Carly Hogan ; Source: Source Unspecified Moderna COVID19 Vaccine, 0.5 mL per dose, 2 doses, administered 28 days apart administered Note: DYLAN Salazar TARIWENDY ; Source: Public Agency Fluzone Quad, preservative free, split virus, 0.5mL dosage administered Source: New Immuniza tion Record Fluzone Quad, preservative free, split virus, 0.5mL dosage administered Source: New Immuniza tion Record Fluzone Quad , preservative free, split virus, 0.5mL dosage administered Source: New Immuniza tion Record Influenza, injectable, quadrivalent, preservative free, 0.5mL dosage administered Source: Source Unspe cified Tdap administered Source: New Imm unization Record Payers Payer name Insurance type Covered constitution party ID Authoriza tion(s) [facility] [employer] [place] [id number] [employer] [place] [id number] [place] [place] [id number] [place] [id number] [place] [place] [id number] [place] [id number] [place] [id number] [place] [id number] [place] [place] [id number] [place] [place] [id number] Social History Type Description Quantity Date Captured Comments Alcohol Use Details Unknown Caffeine Use Details Unknown Tobacco Use Status No Information Smoking Status No Information Sex Male Chief Complaint And Reason For Visit No Information Reason For Referral Reason For Referral No Information Plan Of Treatment Date Type Action Status Goal Dietary manageme nt education, guidance, and counseling completed Goal Dietary manageme nt education, guidance, and counseling completed Goal Dietary manageme nt education, guidance, and counseling completed Goal Dietary manageme nt education, guidance, and counseling completed Goal Dietary manageme nt education, guidance, and counseling completed Goal Dietary manageme nt education, guidance, and counseling completed Goal Dietary manageme nt education, guidance, and counseling completed Goal Dietary manageme nt education, guidance, and counseling completed Goal Dietary manageme nt education, guidance, and counseling completed Goal Dietary manageme nt education, guidance, and counseling completed Referral Ordered: COLONOSCOPY, Flexible, Proximal To Splenic, Diagnostic, Wor W/O Collection Of Sp ordered Referral Ordered: Zeenat Wilkins MD -Rheumatology (related to Arthralgia, unspecified joint) ordered Referral [place]erred To: [place] [id number] [facility]
[address] [place], [phone] Ordered: Referrals: Rheumatology. Zeenat Wilkins MD. Evaluation/diagnostic/treatment - Level 3 ordered Appointment Artemio Salmon BOOKED History Of Present Illness Encounter Date Complaint History Of Prese nt Illness PX Chronic conditio nshtn-- controlled on medpsoraitric arghritis-- oktestosterone- doign well on medgout-- doing well on meddiet-- goodexercise-- splitting wood, moving dirtimmunizations--utdscreenings--utdmo od-- good sleep-- sosomemory-- fine Chr conditions htn-- 130s at ho mepsoriatric arthrititis-- doing okgout -- no recent attackstestosterone defiency--- doing well on med px Chronic conditio nshtn-- controlled on medpsoroatric arthritis-- sosotestosterone defiency-- controlled on medgout-- no recent attacksdiet-- goodexercise-- regularimmunizations--utdscreenings--ut dmood-- goodsleep-- okmemory-- fine Chronic conditions chronic conditinss psroatrtic ar thritis-- controlled on otezla, sees rheumhtn-- controlled at hometestosterone defiency-- controlled on med preventive exam px Chronic conditio nshtn-- controlled on medgout-- no recent attackshypogonadism---doing wellarthritis-- possible psoriatic, celebrex is heloing a bitpsoriasis---doing okdiet-- okexercise-- someimmunizations-- utdscreenings-- needs colonoscopymood---goodsleep--okmemory-- fine 6 mo followup of chr onic conditions 66 year old male who presents for 6 month followup of chronic conditionsPatient reports joint pain with swelling that is worse in the mornings. His hand joints are the worst pain. He reports diffuse joint pain everywhere else. He has history of psoriasis and uses cream as needed. He has strong FH of psoriasis Chronic Conditions *See Chronic Conditions HPI px chronic conditio nshtn-- controlled on meds--130s/65 at homehld-- controlled on statingout-- no recent attackstesticular hypofunction-- controlled on meddiet-- goodexercise-- somescreening--utdimmunizations--utdmoo d--ok Chronic Conditions *See Chronic Conditions HPI 6 mo chronic conditions 65 year old male who presents for 6 month followup of chronic conditionsPatient is getting second Moderna injection todayNo acute issues PX chronic conditio nshtn'-- controlled, no symptomsgout-- no recent attackshld-- on statin, no muscle achestestosterone deficienct-- doing wellcontracture-- rigth hnad is worseningdiet-- eating healthierexercise-- somescreening-- psa utd, and colonoscopy utdimmunizations-- flu shot today, needs shingrixmood-- fine Chronic conditions htn-- no symp tomsgout-- no recent attackshld-- on statin with no muscle achestestosterone defiencty-- doing well overallpsoriasis-- stable, but not resolving PX chronic conditio nshtn-- bp ok overall, no symptomsgout-- uric acid zara nilo rangehld-- taking statin, watching dietskin lesion-- started 6 mont agodiet-- watchingexercise--trying to, not much thoughscreening--utd iwth colonoscopy, psa goodimmunizations-- needs flu and shingrixmood-- very goodsleep-- ok, awaken by nocturia Functional Status Date Functional Assessmen t No Information Instructions Date Instruction Additional Infor jenny flu shot todayutd wi th screeninghealthy diet and exercisefollow up in 6 months Related to Annual physical exam continue medslow salt diet Relat ed to Benign essential hypertension can reduce allopurin ol to 1 tab daily Related to Gout, unspecified cause, unspecified chronicity, unspecified site continue meds Related to Other testicular hypofunction continue meds Related to Psori atic arthritis Urinary Incontinence Medication management Fall Risk Prevention continue medscheck bmp Related t o Benign essential hypertension continue medscheck c bc and testosterone Related to Testicular hypofunction continue medsfollow up with rheu m Related to Psoriatic arthritis follow up with GI Related to Bethany nge in bowel habits continue medsavoid trigger foods Related to Gout, unspecified cause, unspecified chronicity, unspecified site Dietary management e ducation, guidance, and counseling Related to Body mass index (BMI) 31.0-31.9, adult Medication management flu and prevnar toda yutd with screeninghealthy diet and exercisefollow up in 6 months Related to Encounter for general adult medical examination without abnormal findings continue medslow salt diet Relat ed to Benign essential hypertension continue allopurinol Related to Gout, unspecified cause, unspecified chronicity, unspecified site continue medswill stay viagra Re lated to Other testicular hypofunction continue medssee rheum Related t o Psoriatic arthritis Urinary Incontinence Dietary management e ducation, guidance, and counseling Related to Body mass index (BMI) 29.0-29.9, adult Medication management Fall Risk Prevention continue otezla Related to Psori atic arthritis continue replacement Related to Other testicular hypofunction continue medslow salt diet Relat ed to Benign essential hypertension Dietary management e ducation, guidance, and counseling Related to Body mass index (BMI) 32.0-32.9, adult Medication management continue allopurinol Related to Gout, unspecified cause, unspecified chronicity, unspecified site needs colonoscopyhea lthy diet and exercisefollow up in 6 months Related to Encounter for general adult medical examination without abnormal findings continue medslow salt diet Relat ed to Benign essential hypertension use steroid cream as needed Rela kristian to Psoriasis continue celebrex Related to Art hralgia, unspecified joint Medication management Dietary management e ducation, guidance, and counseling Related to Body mass index (BMI) 32.0-32.9, adult Continue to use cream as needed Related to Psoriasis We will check labs today Related to Arthralgia, unspecified joint continue statin Cont inue to work on low fat diet and increase regular exercise with goal of walking at least 30 minutes 3-5 times per week Related to Pure hypercholesterolemia continue allopurinol begin taking colchicine as needed for gout flaresavoid NSAIDs such as ibuprofen, aleve since the indomethacin is causing you abdominal pain Related to Gout, unspecified cause, unspecified chronicity, unspecified site continue replacement Related to Other testicular hypofunction Continue to work on increasing exercise such as walking. Continue to limit salt intake. Monitor your home blood pressure. Call our office if blood pressure is consistently over 140/90 Related to Benign hypertension Dietary management e ducation, guidance, and counseling Related to Body mass index (BMI) 30.0-30.9, adult annual flu shotutd w ith screeninghealthy diet and exercisefollow up in 6 months Related to Encounter for general adult medical examination without abnormal findings continue replacement Related to Other testicular hypofunction continue medslow salt diet Relat ed to Benign hypertension continue statin Related to Pure hypercholesterolemia continue allopurinol Related to Gout, unspecified cause, unspecified chronicity, unspecified site Dietary management e ducation, guidance, and counseling Related to Body mass index (BMI) 29.0-29.9, adult Medication management We will check uric acid level to day Related to Gout, unspecified cause, unspecified chronicity, unspecified site Continue to work on increasing exercise such as walking. Continue to limit salt intake. Monitor your home blood pressure. Call our office if blood pressure is consistently over 140/90 Related to Benign hypertension continue statin Cont inue to work on low fat diet and increase regular exercise with goal of walking at least 30 minutes 3-5 times per week Related to Other and unspecified hyperlipidemia continue replacement Related to Other testicular hypofunction Dietary management e ducation, guidance, and counseling Related to Body mass index (BMI) 30.0-30.9, adult continue medslow salt diet Relat ed to Benign hypertension can reduce allopurin olwill recheck uric acid Related to Gout, unspecified cause, unspecified chronicity, unspecified site annual flu shotneeds shingrixutd with screeningcontinue healthy diet and exercise Related to Encounter for general adult medical examination without abnormal findings continue statin Related to Other and unspecified hyperlipidemia follow up with ortho Related to Dupuytren's contracture of both hands continue replacement Related to Other testicular hypofunction Dietary management e ducation, guidance, and counseling Related to Body mass index (BMI) 30.0-30.9, adult Medication management bp controlledcontinu e meds low salt diet Related to Benign hypertension continue allopurinol check uric acid level Related to Gout, unspecified cause, unspecified chronicity, unspecified site continue replacementcheck tsh Re lated to Other testicular hypofunction continue statin Related to Other and unspecified hyperlipidemia follow up with derm Related to P soriasis Medication management Dietary management e ducation, guidance, and counseling Related to Body mass index (BMI) 31.0-31.9, adult Giving encouragement to exercise Related to Body mass index (BMI) 31.0-31.9, adult would follow up with derm Relate d to Skin lesion annual flu shotneeds shingrixutd with screeningsfollow up in 6 months Related to Adult general medical exam continue statin Related to Other and unspecified hyperlipidemia continue alloupurinol Related to Gout, unspecified cause, unspecified chronicity, unspecified site bp at goalcontinue meds Related to Benign hypertension Dietary management e ducation, guidance, and counseling Related to Body mass index (BMI) 31.0-31.9, adult Medication management Assessments Type Assessment Date No Information Patient Care Teams Name Effective Dates (start - stop) Status Members No Information
--- OUTSIDE RECORDS SUMMARY | 2025-02-24 10:04 | XMS_ITS | Clinical Summary ---
Author Organization [facility] Address [address] [place] [address] Care Team Providers Care Commodity Manager Name Role Phone Braeden Macdonald MD Primary Care Provider [phone] Allergies No known active allergies Medications simvastatin 10 MG tablet Take 1 tablet (10 mg total) by mouth nightly at bedtime. Active lisinopril 40 MG tablet Take 1 tablet (40 mg total) by mouth daily. Active hydroCHLOROthia zide 12.5 MG capsule Take 1 capsule (12.5 mg total) by mouth every morning. Active Apremilast (OTEZLA) 30 MG Tab Take 30 mg by mouth daily. Active allopurinol (ZYLOPRIM) 300 MG tablet Take 1.5 tablets (450 mg total) by mouth daily. 2 Active testosterone (ANDROGEL) 20.25 MG/ACT (1.62%) Gel Apply 2 Pump topically daily. 3 Active sildenafil (VIAGRA) 50 MG tablet Take 1 tablet (50 mg total) by mouth as needed for Erectile Dysfunction. 4 Active Active Problems Problem Noted Date Diagnosed Date Screening for colon cancer 01/21/2023 Overview (01/21/2023): Added automatically from request for surgery [id number] Social History Tobacco Use Types Packs/Day Years Used Date Smoking Tobacco: Former Smokeless Tobacco: Never Tobacco Cessation:Counseling Given: Not Answered Alcohol Use Standard Drinks/Week Comments Yes 23.3 (1 standard drink = 0.6 oz pure alcohol) DAILY PHQ-2 Answer Date Recorded Patient Health Questionnaire-2 Score 0 12/12/2022 Sex and Gender Information Value Date Recorded Sex Assigned at Not on file Legal Sex Male 4:20 PM CDT Gender Identity Not on file Sexual Orientation Not on file Last Filed Vital Signs Vital Sign Reading Time Taken Comments Blood Pressure 126/65 05/18/2024 8:15 AM CDT Pulse 91 05/18/2024 7:10 AM CDT Temperature 36.6 C (97.8 F) 05/18/2024 7:10 AM CDT Respiratory Rate 18 05/18/2024 8:15 AM CDT Oxygen Saturation 98% 05/18/2024 8:15 AM CDT Inhaled Oxygen Concentration - - Weight 99.3 kg (219 lb) 05/18/2024 7:10 AM CDT Height 185.4 cm (6' 0.99 ) 05/18/2024 7:10 AM CD T Body Mass Index 28.9 05/18/2024 7:10 AM CDT Plan of Treatment Health Maintenance Due Date Last Done Comments DTaP, Tdap and Td Vaccines ( 1 - Tdap) 1975 Zoster Vaccines (1 of 2) 2006 AAA SCREENING 2021 Annual Medicare Wellness Visit 2021 Pneumococcal Vaccine: 65+ Years (1 of 1 - PCV) 2021 COVID-19 Vaccine (1 - 2023-2 5 season) 2024 PHQ-2 (Physician [place]) 11/23/2024 RSV Immunization or 60+ Years (1 - 1-dose 75+ series) 2031 Colorectal Cancer Screening Colonoscopy (10 Years) 05/18/2034 05/18/2024, 03/13/2023, 04/21/2012 Hepatitis C Completed 08/06/2022 Meningococcal B Vaccine Aged Out No l onger eligible based on patient's age to complete this topic Meningococcal Vaccine Aged Out No jonathan curtis eligible based on patient's age to complete this topic RSV Immunizations Under 20 Months Aged Out No longer eligible b ased on patient's age to complete this topic Medical Devices Implanted Type Area Obiee Report Developer Device Identifier Shelf Expiration Date Model / Serial / Lot Clip Hemostatic Endoscopic Instinct Plus - [id number] Implanted:Qty: 1 on 03/13/2023 by Kiran Romero MD at [facility] Clip Implant [employer] 11/27/2025 [id number] / / [id number] Iol Toric Lens Sa6at4 - [id number] Implanted:Qty: 1 on 11/05/2020 by Jason Slaughter MD at [facility] Lens [employer] 05/22/2022 [id number] / [id number] / Procedures Procedure Name Priority Date/Time Associated Diagnosis Comments COLONOSCOPY GENERIC (SCAN ORDER) 04/21/2012 from Last 3 Months or Most Recently Relevant to Health Maintenance Results * COLONOSCOPY GENERIC (04/21/2012) 04/21/2012 [facility] Scanned SCANNING Final Resu lt from Last 3 Months or Most Recently Relevant to Health Maintenance Insurance MEDICARE Care Teams Commodity Manager Relationship Specialty Start Date End Date Braeden Macdonald MD [address] [place] [id number] PCP - General INTERNAL MEDICINE 10/30/20
--- OUTSIDE RECORDS SUMMARY | 2025-02-24 10:04 | XMS_ITS | Encounter Summary ---
Author Organization [facility] Address On license of [facility] [place] [address] Care Team Providers Care Inbound Ingredient Logistics Specialist Name Role Phone Braeden Macdonald MD Primary Care Provider Encounter Details Date Type Department Care Team (Late st Contact Info) Description 10/30/2020 Prep for Procedure [facility] [address] [place], [place] [id number] Jason Slaughter MD [address] [place] [address] Social History Tobacco Use Types Packs/Day Years Used Date Smoking Tobacco: Former Smokeless Tobacco: Never Alcohol Use Standard Drinks/Week Comments Yes 0 (1 standard drink = 0.6 oz pur e alcohol) DAILY Sex and Gender Information Value Date Recorded Sex Assigned at Not on file Legal Sex Male 4:20 PM CDT Gender Identity Not on file Sexual Orientation Not on file COVID-19 Exposure Response Date Recorded In the last month, have you been in contact with someone who was confirmed or suspected to have Coronavirus / COVID-19? No / Unsure 11/02/2020 8:34 AM PASSENGER RATE CLERK documented as of this encounter Plan of Treatment Not on file documented as of this encounter Results * PRE-SURGICAL/PRE-PROCEDURE CORONAVIRUS (COVID 19) (11/02/2020 8:38 AM PASSENGER RATE CLERK) CORONAVIRUS SARS COV 2 PCR (RESP) NOT DETECTED NOT DETECTED 11/04/2020 1:21 AM PASSENGER RATE CLERK [facility] Comment: A Not Detected (negative) test result for this test means that SARS- CoV-2 RNA was not present in the specimen above the limit of detection. A negative result does not rule out the possibility of COVID-19 and should not be used as the sole basis for treatment or patient management decisions. If COVID-19 is still suspected, based on exposure history together with other clinical findings, re-testing should be considered in consultation with public health authorities. Laboratory test results should always be considered in the context of clinical observations and epidemiological data in making a final diagnosis and patient management decisions. Please review the Fact Sheets and FDA authorized labeling available for health care providers and patients using the following websites: https://www.[employer].Bondsy/home/Covid-19/HCP/NAAT/fact-sheet2 https://www.[employer].Bondsy/home/Covid-19/Patients/NAAT/ fact-sheet2 This test has been authorized by the FDA under an Emergency Use Authorization (EUA) for use by authorized laboratories. Due to the current public health emergency, [facility] is receiving a high volume of samples from a wide variety of swabs and media for COVID-19 testing. In order to serve patients during this public health crisis, samples from appropriate clinical sources are being tested. Negative test results derived from specimens received in non-commercially manufactured viral collection and transport media, or in media and sample collection kits not yet authorized by FDA for COVID-19 testing should be cautiously evaluated and the patient potentially subjected to extra precautions such as additional clinical monitoring, including collection of an additional specimen. Methodology: Nucleic Acid Amplification Test (NAAT) includes RT-PCR or TMA Additional information about COVID-19 can be found at the [facility] website: [email or web address].Bondsy/Covid19. Test performed at [facility] [place] [address] [place] [phone] Director: JOEY OCHOA DO,MPH FIRST TEST YES 11/02/2020 8:35 AM [facility] EMPLOYED IN HEALTHCARE UNKNOWN 11/02/2020 8:35 AM [facility] SYMPTOMATIC DEFINED BY CDC NO 11/02/2020 8:35 AM [facility] DATE OF SYMPTOM ONSET UNKNOWN 11/02/2020 8:44 AM PASSENGER RATE CLERK [facility] HOSPITALIZATION STATUS NO 11/02/2020 8:35 AM PASSENGER RATE CLERK [facility] PATIENT IN ICU NO 11/02/2020 8:35 AM PASSENGER RATE CLERK [facility] RESIDENT OF [facility] UNKNOWN 11/02/2020 8:35 AM PASSENGER RATE CLERK [facility] NO 11/02/2020 8:44 AM PASSENGER RATE CLERK [facility] PATIENT'S RACE WHITE OR 11/02/2020 8:35 AM PASSENGER RATE CLERK [facility] ETHNICITY UNKNOWN 11/02/2020 8:35 AM PASSENGER RATE CLERK [facility] SOURCE (QST) NASOPHARYNGEAL SWAB 11/02/2020 8:35 AM PASSENGER RATE CLERK [facility] NASOPHARYNGEAL SWAB / Unknown 11/02/2020 8:38 AM PASSENGER RATE CLERK us Jason Slaughter MD MICROBIOLOGY - GENERAL ORDERAB LES Final Result [facility] [address] [place] [address], [facility] [id number] [place] [address], documented in this encounter Visit Diagnoses Diagnosis Preop testing- Primary Preoperative examination, unspecified documented in this encounter Additional Health Concerns Infection Onset Date Last Indicated Resolved Time COVID-19 Rule Out 11/02/2020 11/02/2020 11/04/2020 1:21 AM PASSENGER RATE CLERK documented as of this encounter Care Teams Inbound Ingredient Logistics Specialist Relationship Specialty Start Date End Date Braeden Macdonald MD [address] [place] [address] PCP - General INTERNAL MEDICINE 10/30/20 documented as of this encounter
--- OUTSIDE RECORDS SUMMARY | 2025-02-24 10:04 | XMS_ITS | Clinical Summary ---
Author Organization [facility] Address [address] [place] [address] Care Team Providers Care Signwriter Name Role Phone Braeden Macdonald MD Primary Care Provider [phone] Mustapha Kerr MD Unavailable Source Comments [facility],non-owned Affiliates and Associated Physician Practices is amultiple site organization consisting of ambulatory clinics and hospital sitesin [place], [place], [place] and [place]. This disclosure is being madepursuant to the Care Everywhere program and may not contain all information available regarding this patient. Last updated 18.[facility] Allergies No known active allergies Medications * Be aware that medications may not be up to date on this document. Alwaysverify current medications with the patient. Medication Sig Dispensed Refills Start Date End Date Status lisinopril (PRINIVIL; ZESTRIL) 40 MG tablet Take 1 (one) tablet by mouth DAILY 04/27/2017 Active hydroCHLOROthiazide (HYDRODIURIL) 12.5 MG Take 1 (one) tablet by mouth DAILY 04/27/2017 Active clobetasol (Temovate) 0.05 % cream as needed 12/24/2021 Active indomethacin (Indocin) 50 MG capsule as needed 12/31/2021 Active simvastatin (Zocor) 10 MG tablet Take 1 (one) tablet by mouth once daily Active allopurinol (Zyloprim) 300 MG tablet Take 1.5 (one and one-half) tablets by mouth once daily 10/06/2022 Active testosterone (Androgel) 20.25 MG/ACT (1.62%) gel Apply 2 (two) Pump to affected area once daily 12/04/2022 Active triamcinolone acetonide (Kenalog) 0.1 % creamIndications:Pso riatic arthritis (HCC),Immunosuppress ed status (HCC),High risk medication use,Polyarthralgia Apply to affected area as needed 453.6 g 1 03/17/2024 Active predniSONE (Deltasone) 10 MG tablet 07/24/2024 Active sildenafil (Viagra) 50 MG tablet Take 1 (one) tablet by mouth as needed 02/29/2024 Active Apremilast (Otezla) 30 MG Take 1 (one) tablet by mouth 2 times daily 180 tablet 1 12/21/2024 Active Active Problems Problem Noted Date Diagnosed Date Immunosuppressed status 12/21/2024 Psoriatic arthritis 03/17/2024 Psoriasis 05/07/2017 Pain in right shoulder 05/07/2017 Other chronic pain 05/07/2017 Encounters Date Type Department Care Team Description 02/17/2025 Orders Only [facility] Rheumat[facility] [address] [place] [address] Mustapha Kerr MD 12/21/2024 10:15 AM NATIONAL PARK TOUR GUIDE Office Visit [facility] Rheumatology [address] [place] [phone] Mustapha Kerr MD Psoriatic arthritis (Primary Dx); Immunosuppressed status; High risk medication use; Polyarthralgia 12/13/2024 Orders Only [facility] Rheumatology [address] [place] [address] Mustapha Kerr MD 12/12/2024 Refill [facility] Rheumat[facility] [address] [place] [phone] Mustapha Kerr MD Refill Request from Last 3 Months Immunizations Name Administration Dates Next Due INFLUENZA VACCINE 08/27/2022 Family History Medical History Relation Name Comments Hypertension Father Migraine Mother Psoriasis Mother Psoriasis Sister Relation Name Status Comments Father Mother Sister Social History Tobacco Use Types Packs/Day Years Used Date Smoking Tobacco: Former Cigarettes Q uit: 11/23/1996 Smokeless Tobacco: Never Tobacco Cessation:Counseling Given: Not Answered Alcohol Use Standard Drinks/Week Comments Yes 2 (1 standard drink = 0.6 oz pur e alcohol) PHQ-2 Answer Date Recorded Patient Health Questionnaire-2 Score 0 12/21/2024 Sex and Gender Information Value Date Recorded Sex Assigned at Not on file Gender Identity Not on file Sexual Orientation Not on file Last Filed Vital Signs Vital Sign Reading Time Taken Comments Blood Pressure 158/70 12/21/2024 10:18 AM NATIONAL [employer]ARK TOUR GUIDE Pulse 92 12/21/2024 10:18 AM N[employer] GUIDE Temperature 36.2 C (97.1 F) 05/07/2017 11:01 AM CDT Respiratory Rate 16 07/29/2024 10:0 0 AM CDT Oxygen Saturation 96% 07/29/2024 10: 00 AM CDT Inhaled Oxygen Concentration - - Weight 106.2 kg (234 lb 3.2 oz) 025 10:18 AM N[employer] T[employer] GUIDE Height 184.4 cm (6' 0.6 ) 12/21/2024 10 :18 AM N[employer]ARK T[employer] GUIDE Body Mass Index 31.24 12/21/2024 10:18 AM NATIONAL [employer]ARK T[employer] GUIDE Plan of Treatment Health Maintenance Due Date Last Done Comments COLOGUARD (AGES 45-75) - COLON CA SCREENING [address] COLONOGRAPHY - COLON CA SCREENING 1955 FIT - COLON CA SCREENING 1955 FLEX SIG - COLON CA SCREENING 1955 COVID-19 VACCINE (#1) 1961 DTAP/TDAP/TD VACCINES (1 - Tdap) 1975 PNEUMOCOCCAL VACCINE 50+ (1 of 2 - PCV) 1975 ZOSTER VACCINE (1 of 2) 1975 Respiratory Syncytial Virus (RSV) Vaccine Pt: or over 60 yrs (1 - Risk 60-74 years 1-dose series) 2016 AAA SCREENING 2021 INFLUENZA VACCINE (Season Ended) 2025 08/27/2022 SCREENING FOR DIABETES 02/18/2028 , 12/13/2024, 07/15/2024, Additional history exists COLONOSCOPY - COLON CA SCREENING 05/18/2034 05/18/2024 Colorectal Cancer Screening 05/18/2034 HEPATITIS C SCREENING Completed 12/13/2024 , 09/08/2023, 08/06/2022 DEPRESSION SCREENING Completed 12/21/2024 HEPATITIS B VACCINE Aged Out No longe r eligible based on patient's age to complete this topic HIB VACCINE Aged Out No longer eligi ble based on patient's age to complete this topic HPV VACCINE Aged Out No longer eligi ble based on patient's age to complete this topic MENINGOCOCCAL (Group B) VACCINE SHARED DECISION-MAKING Aged Out No longer eligible based on patient's age to complete this topic MENINGOCOCCAL GROUPS A/C/Y/W VACCINE Aged Out No longer eligible based on patient's age to complete this topic Procedures Procedure Name Priority Date/Time Associated Diagnosis Comments C-REACTIVE PROTEIN 02/17/2025 8: 37 AM CDT CBC W AUTO DIFFERENTIAL 02/17/2025 8:37 AM CDT ERYTHROCYTE SEDIMENTATION RATE 02/17/2025 8:37 AM CDT COMPREHENSIVE METABOLIC PANEL 02/17/2025 8:37 AM CDT QUANTIFERON-TB GOLD PLUS 1-TUBE 12/13/2024 9:17 AM N[employer]ARK T[employer] GUIDE C-REACTIVE PROTEIN 12/13/2024 9: 17 AM N[employer] T[employer] GUIDE CBC W AUTO DIFFERENTIAL 12/13/2024 9:17 AM NATIONAL [employer] T[employer] GUIDE ERYTHROCYTE SEDIMENTATION RATE 12/13/2024 9:17 AM N[employer]ARK T[employer] GUIDE COMPREHENSIVE METABOLIC PANEL 12/13/2024 9:17 AM NATIONAL [employer] T[employer] GUIDE URIC ACID BLOOD 12/13/2024 9:17 AM NATIONAL [employer] T[employer] GUIDE HEPATITIS PANEL 12/13/2024 9:17 AM NATIONAL [employer]ARK T[employer] GUIDE from Last 3 Months Results * (ABNORMAL) C-REACTIVE PROTEIN (02/17/2025 8:37 AM CDT) Only the most recent of2 resultswithin the time period is included. Pathologist [facility] C-Reactive Protein 9.5(H) <8.0 mg/L [facility] Comment: Test Performed at: [facility] [place] [address] [place] [address] HOLLAND CASTILLO MD 02/17/2025 8:37 AM CDT 02/17/2025 8:37 AM CDT Mustapha Kerr MD LAB - CHEMISTRY ORDE RABJENIEFR Performing Organization Address [facility] de Phone Number [facility] [address] [place] [address] * ERYTHROCYTE SEDIMENTATION RATE (02/17/2025 8:37 AM CDT) Only the most recent of2 resultswithin the time period is included. [facility] Erythrocyte Sedimentation Rate Westergren 6 < OR = 20 mm/h [facility] Comment: Test Performed at: [facility] [address] [place] [address] HOLLAND CASTILLO MD 02/17/2025 8:37 AM CDT 02/17/2025 8:37 AM CDT Mustapha Kerr MD LAB - HEMATOLOGY ORD ERABLES Performing Organization Address [facility] de Phone Number [facility] [address] [place] [address] * (ABNORMAL) CBC WITH DIFFERENTIAL (02/17/2025 8:37 AM CDT) Only the most recent of2 resultswithin the time period is included. [facility] White Blood Cell Count 7.4 3.8 - 10.8 Thousand/u L [facility] RBC 5.51 4.20 - 5.80 Million/uL [facility] Hemoglobin 17.0 13.2 - 17.1 g/dL [facility] Hematocrit 51.4(H) 38.5 - 50.0 % [facility] MCV 93.3 80.0 - 100.0 fL [facility] MCH 30.9 27.0 - 33.0 pg [facility] MCHC 33.1 32.0 - 36.0 g/dL [facility] Comment: For adults, a slight decrease in the calculated MCHC value (in the range of 30 to 32 g/dL) is most likely not clinically significant; however, it should be interpreted with caution in correlation with other red cell parameters and the patient's clinical condition. RDW 13.6 11.0 - 15.0 % [facility] Platelet Count 197 140 - 400 Thousand/u L [facility] MPV 9.5 7.5 - 12.5 fL [facility] Neutrophil Absolute 4803 1500 - 7800 cells/uL [facility] Lymphocytes Absolute 1717 850 - 3900 cells/uL [facility] Absolute Monocytes 511 200 - 950 cells/uL [facility] Eosinophils Absolute 289 15 - 500 cells/uL [facility] Basophils Absolute 81 0 - 200 cells/uL [facility] Granulocytes % 64.9 % [facility] Lymphocytes % 23.2 % [facility] Monocytes % 6.9 % [facility] Eosinophils % 3.9 % [facility] Basophils % 1.1 % [facility] Comment: Test Performed at: [facility] [address] [place] [address] HOLLAND CASTILLO MD 02/17/2025 8:37 AM CDT 02/17/2025 8:37 AM CDT Mustapha Kerr MD LAB - HEMATOLOGY ORD ERABLES [facility] [address] [place] [address] * (ABNORMAL) COMPREHENSIVE METABOLIC PANEL (02/17/2025 8:37 AM CDT) Only the most recent of2 resultswithin the time period is included. Glucose 105(H) 65 - 99 mg/dL [facility] Comment: Fasting reference interval For someone without known diabetes, a glucose value between 100 and 125 mg/dL is consistent with prediabetes and should be confirmed with a follow-up test. BUN 26(H) 7 - 25 mg/dL [facility] Creatinine 1.28 0.70 - 1.35 mg/dL [facility] eGFR by Cystatin C 61 > OR = 60 mL/min/1.7 3m2 [facility] BUN/Creatinine Ratio 20 6 - 22 (calc) [facility] Sodium 135 135 - 146 mmol/L [facility] Potassium 5.3 3.5 - 5.3 mmol/L [facility] Chloride 103 98 - 110 mmol/L [facility] CO2 23 20 - 32 mmol/L [facility] Calcium 9.8 8.6 - 10.3 mg/dL [facility] Protein Total 7.4 6.1 - 8.1 g/dL [facility] Albumin 4.5 3.6 - 5.1 g/dL [facility] Globulin Total 2.9 1.9 - 3.7 g/dL (calc) [facility] Albumin/Globulin Ratio 1.6 1.0 - 2.5 (calc) [facility] Bilirubin Total 0.5 0.2 - 1.2 mg/dL [facility] Alkaline Phosphatase 75 35 - 144 U/L [facility] AST 35 10 - 35 U/L [facility] ALT 35 9 - 46 U/L [facility] Comment: Test Performed at: [facility] [address] [place] [place] [address] HOLLAND CASTILLO MD 02/17/2025 8:37 AM CDT 02/17/2025 8:37 AM CDT Mustapha Kerr MD LAB - CHEMISTRY ENRIQUE BUNCH [facility] Organization Address City/State/ZIP Co de Phone Number [facility] [address] [place] [address] * QUANTIFERON-TB GOLD PLUS 1-TUBE (12/13/2024 9:17 AM NATIONAL [employer]ARK T[employer] GUIDE) [facility] QuantiFERON TB Gold Plus NEGATIVE NEGATIVE [facility] Comment: Negative test result. M. tuberculosis complex infection unlikely. NIL 0.01 IU/mL [facility] MITOGEN MINUS NIL RESULT 8.78 IU/mL [facility] TB1-NIL 0.01 IU/mL [facility] TB2-NIL 0.01 IU/mL [facility] Comment: The Nil tube value reflects the background interferon gamma immune response of the patient's blood sample. This value has been subtracted from the patient's displayed TB and Mitogen results. Lower than expected results with the Mitogen tube prevent false-negative Quantiferon readings by detecting a patient with a potential immune suppressive condition and/or suboptimal pre-analytical specimen handling. The TB1 Antigen tube is coated with the M. tuberculosis-specific antigens designed to elicit responses from TB antigen primed CD4+ helper T-lymphocytes. The TB2 Antigen tube is coated with the M. tuberculosis-specific antigens designed to elicit responses from TB antigen primed CD4+ helper and CD8+ cytotoxic T-lymphocytes. For additional information, please refer to https://education.Casinity/faq/YME609 (This link is being provided for informational/ educational purposes only.) Test Performed at: [facility] [place] [address] [place] [address] HOLLAND CASTILLO MD 12/13/2024 9:17 AM [employer]IDE 12/13/2024 9:18 AM [employer]IDE Mustapha Kerr MD LAB - CHEMISTRY ENRIQUE MAKENZIEJENIFER Performing Organization Address [facility] Co de Phone Number [facility] [address] [place] [address] * URIC ACID BLOOD (12/13/2024 9:17 AM NATIONAL [employer]ARK T[employer] GUIDE) Uric Acid 5.3 4.0 - 8.0 mg/dL [facility] Comment: Therapeutic target for gout patients: <6.0 mg/dL Test Performed at: [facility] [id number] [place] [phone] HOLLAND CASTILLO MD 12/13/2024 9:17 AM N[employer] GUIDE 12/13/2024 9:18 AM N[employer] T[employer] GUIDE Mustapha Kerr MD LAB - CHEMISTRY ENRIQUE BUNCH Performing Organization Address [facility] Co de Phone Number [facility] [address] [place] [address] * HEPATITIS PANEL (12/13/2024 9:17 AM NATIONAL [employer]ARK T[employer] GUIDE) Pathologist [facility] Hepatitis A Virus Antibody Total NON-REACTI VE NON-REACT [place] [facility] Comment: For additional information, please refer to http://[employer]2Web.Casinity/faq/GGW055 (This link is being provided for informational/ educational purposes only.) Hepatitis B Virus Surface Antibody NON-REACTI VE NON-REACT [place] [facility] Hepatitis B Virus Surface Antigen NON-REACTI VE NON-REACT [place] [facility] Comment: For additional information, please refer to http://[employer]Web.Casinity/faq/SFO207 (This link is being provided for informational/ educational purposes only.) Hepatitis B Core Virus Antibody Total NON-REACTI VE NON-REACT [place] [facility] Comment: For additional information, please refer to http://[employer]2Web.Casinity/faq/VMU659 (This link is being provided for informational/ educational purposes only.) Hepatitis C Antibody NON-REACTI VE NON-REACT [place] [facility] Comment: HCV antibody was non-reactive. There is no laboratory evidence of HCV infection. In most cases, no further action is required. However, if recent HCV exposure is suspected, a test for HCV RNA (test code 89749) is suggested. For additional information please refer to http://education.Prepmatic.Didasco/faq/ZXO56y0 (This link is being provided for informational/ educational purposes only.) Test Performed at: [facility] [employer] [place] [address] [facility] [place] [address] HOLLAND CASTILLO MD 12/13/2024 9:17 AM [employer]IDE 12/13/2024 9:18 AM [employer]IDE Mustapha Kerr MD LAB - CHEMISTRY ENRIQUE BUNCH [facility] [address] [place] [address] from Last 3 Months Care Teams Signwriter Relationship Specialty Start Date End Date Braeden Macdonald MD PCP - General 12/11/16 [place] [address] [place] [address] [place] [phone] Rheumatology 08/06/22
--- OUTSIDE RECORDS SUMMARY | 2025-02-24 10:18 | XMS_ITS | Continuity of Care Document ---
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 (1.62 %) transdermal gel apply 1 pump to each upper arm and shoulders daily ( 2 pumps/day) - No Longer Active 75gm bottle/month ; faxed to [employer] [phone] Procedures Procedure Date ROUTINE VENIPUNCTURE IL Pt [...] TOTAL Pt inelig neg scrn depres OFFICE [id number] BODY MASS INDEX DOCD SYST BP >= [...] IL Pt inelig neg scrn depres OFFICE [id number] BODY MASS INDEX DOCD SYST BP >= [...] VENIPUNCTURE Pt inelig neg scrn depres OFFICE [id number] BODY MASS INDEX DOCD SYST BP GE [...] TOTAL Pt inelig neg scrn depres OFFICE [id number]-[id number] BODY MASS INDEX DOCD SYST BP GE [...] PANEL(BMP) URIC ACID, (S) ROUTINE VENIPUNCTURE OFFICE [id number] BODY MASS INDEX DOCD SYST BP GE [...] INC PLATELETS AND DIFFERENTIAL COMPREHEN METABOLIC PANEL [facility] 9 HEMOGLOBIN A1C HGA1C, GLYCO LIPID [...] Diagnoses Date Provider Providers Copied on Encounter [facility], [address], [place], [place], [address] , [place] tel: [phone] [facility] No Information 5 English Deras. [address] [place], [place], [address], [place]. tel:[phone] [facility], [address], [place], [place], [address] , [place] tel: [phone] [facility] No Information 4 English Deras. [address] [place], [place], [address], [place]. tel:[phone] PREVENTATIVE -EST: [address] & [address] [facility], [address], [place], [place], [address] , [place] tel: [phone] [facility] PX (chief complaint) Annual physical examScreening PSA (prostate specific antigen)Other testicular hypofunctionGout, unspecified cause, unspecified chronicity, unspecified siteBenign essential hypertensionPsori atic arthritisBody mass index [BMI] 30.0-30.9, adultEncounter for immunization 4 English Deras. [address] [place], [place], [address], [place]. tel:[phone] Referring Provider: [place], [address] . tel:[phone] [facility], [address], [place], [place], [address] , tel: [phone] [facility] No Information [address] [place] [address], [id number], [place]. tel:[phone] Referring Provider: [place], [address] . tel:[phone] [facility], [address], [place], [place], [address] , tel: [phone] [facility] Blood tests for routine general physical examinationBenign essential hypertension 4 English Deras. [address] [place], [place], [address], . tel:[phone] [employer], [address], [place], [place], [address] , tel: [phone] [employer] [facility] No Information 4 English Deras. [address] [place], [place], [address], . tel:[phone] [employer] [facility], [address], [place], [place], [address] , tel: [phone] [facility] No Information 4 Abraham Akil. [address] [place] [address], [id number], [place]. tel:[phone] Referring Provider: Braeden Macdonald, [address] [place], [address] . tel:[phone] OFFICE LFIXV-VTT-YP TAILED [facility], [address], [place], [place], [address] , tel: [phone] [employer] [facility] Chr conditions (chief complaint) Body mass index [BMI] 31.0-31.9, adultTesticular hypofunctionBenig n essential hypertensionPsori atic arthritisGout, unspecified cause, unspecified chronicity, unspecified siteChange in bowel habits 4 English Deras. [address] [place], [place], [address], [place]. tel:[phone] Referring Provider: [place], [address] . tel:[phone] [employer] [facility], [address], [place], [place], [address] , tel: [phone] [facility] No Information 3 Abraham Akil. [address], [id number], . tel:[phone] Referring Provider: [place], [address] . tel:[phone] [facility], [address], [place], [place], [address] , tel:[phone] [facility] Abnormal CBCTesticular hypofunction 3 English Deras. [address] [place], [place], [address], . tel:[phone] Referring Provider: Braeden Macdonald, [place], [address] . tel:[phone] [facility], [address], [place], [place], [address] , tel:[phone] [facility] No Information 3 Abraham Barnard. [address] [place] [address], [id number], . tel:[phone] Referring Provider: Braeden Macdonald, [place], [address] . tel:[phone] PREVENTATIVE -EST: [address] [facility], [address], [place], [place], [address] , tel:[phone] [facility] px (chief complaint) Body mass index [BMI] 29.0-29.9, adultEncounter for general adult medical examination without abnormal findingsGout, unspecified cause, unspecified chronicity, unspecified siteOther testicular hypofunctionBenig n essential hypertensionPsori atic arthritis 3 English Deras. [address] [place], [address], [place]. tel:[phone] Referring Provider: [place], [address] . tel:[phone] OFFICE YXIMK-AYS-ZH TAILED [facility], [address], [place], [place], [address] , tel: [phone] [facility] Chronic conditions (chief complaint)c hronic conditinss (chief complaint) Body mass index [BMI] 32.0-32.9, adultBenign essential hypertensionOther testicular hypofunctionPsori atic arthritis Feb-0 3 English Deras. [address] [place], [place], [address], [place]. tel:[phone] Referring Provider: [place], [address] . tel:[phone] [employer], [address], [place], [place], [address] , [place] tel: [phone] [facility] No Information 2 English Deras. [address] [place], [place], [address], [place]. tel:[phone] PREVENTATIVE -EST: 65 & OVER [employer], [address], [place], [place], [address] , [place] tel: [phone] [facility] preventive exam (chief complaint)p x (chief complaint) Body mass index [BMI] 32.0-32.9, adultEncounter for general adult medical examination without abnormal findingsGout, unspecified cause, unspecified chronicity, unspecified siteArthralgia, unspecified jointPsoriasisBen ign essential hypertensionEncou nter for screening for malignant neoplasm of colon 2 English Deras. [address] [place], [place], [address], [place]. tel:[phone] Referring Provider: Braeden Macdonald, [place], [address] . tel:[phone] [employer], [address], [place], [place], [address] , [place] tel: [phone] [facility] Benign essential hypertensionHyper glycemiaChronic gout without tophus, unspecified cause, unspecified siteHyperlipidemi a, unspecified hyperlipidemia typeScreening for prostate cancerOther testicular hypofunction 2 English Deras. [address] [place], [place], [address], [place]. tel:[phone] Referring Provider: Braeden Macdonald, [address] [place], [address] . tel:[phone] OFFICE IWABZ-OAY-TD TAILED [facility], [address], [place], [place], [address] , [place] tel: [phone] [place] 6 mo followup of chronic conditions (chief complaint)C hronic Conditions (chief complaint) Gout, unspecified cause, unspecified chronicity, unspecified siteBenign hypertensionPure hypercholesterole miaOther testicular hypofunctionBody mass index [BMI] 30.0-30.9, adultPsoriasisArt hralgia, unspecified joint Mar-2 2 Cochran Kimberlee. [address] [place], [place], [address], . tel:[phone] Referring Provider: [place], [address] . tel:[phone] [employer], [address], [place], [place], [address] , tel: [phone] [place] Other testicular hypofunction Sep-0 1 English Deras. [address] [place] [address], [address], . tel:[phone] Referring Provider: [place], [address] . tel:[phone] PREVENTATIVE -EST: 40-64 [employer], [address], [place], [place], [address] , tel: [phone] [facility] px (chief complaint) Encounter for general adult medical examination without abnormal findingsOther testicular hypofunctionBenig n hypertensionGout, unspecified cause, unspecified chronicity, unspecified sitePure hypercholesterole miaBody mass index (BMI) 29.0-29.9, adult Sep- 1 English Deras. [address] [place], [address], . tel:[phone] Referring Provider: [place], [address] . tel:[phone] [employer], [address], [place], [place], [address] , tel: [phone] [place] Benign hypertensionPure hypercholesterole miaSpecial screening for malignant neoplasm of prostateGout, unspecified cause, unspecified chronicity, unspecified siteHyperglycemia , unspecifiedOther testicular hypofunction Sep- 1 English Deras. [address] [place], [place], [address], . tel:[phone] Referring Provider: [place], [address] . tel:[phone] OFFICE PBBEQ-NIW-SX TAILED [facility], [address], [place], [place], [address] , tel: [phone] [place] 6 mo chronic conditions (chief complaint)C hronic Conditions (chief complaint) Gout, unspecified cause, unspecified chronicity, unspecified siteBenign hypertensionOther and unspecified hyperlipidemiaOth er testicular hypofunctionBody mass index (BMI) 30.0-30.9, adult Mar-3 - 1 Dimas Mohan. [address] [place], [place], [address], . tel:[phone] Referring Provider: Braeden Macdonald [address] [place], [address] . [phone] [employer], [address], [place], [place], [address] , tel: [phone] [facility] No Information Jan-2 1 English Deras. [address] [place] [address], [id number], . tel:[phone] [employer], [address], [place], [place], [address] , tel: [phone] [place] Benign hypertensionGout, unspecified cause, unspecified chronicity, unspecified site Jul-2 0 English Deras. [address] [place], [place], [address], . tel:[phone] Referring Provider: [place], [address] . tel:[phone] PREVENTATIVE -EST: 40-64 [employer], [address], [place], [place], [address] , tel: [phone] [place] PX (chief complaint) Encounter for general adult medical examination without abnormal findingsGout, unspecified cause, unspecified chronicity, unspecified siteOther testicular hypofunctionBenig n hypertensionOther and unspecified hyperlipidemiaBod y mass index (BMI) 30.0-30.9, adultDupuytren's contracture of both hands Jul- 0 English Deras. [address] [place], [address], [place]. tel:[phone] Referring Provider: [place], [address] . [phone] [employer], [address], [place], [place], [address] , tel: [phone] [place] Benign hypertensionPure hypercholesterole miaOther testicular hypofunctionGout, unspecified cause, unspecified chronicity, unspecified siteEncounter for blood test for routine general physical examinationScreen ing for prostate cancerEncounter for long-term (current) use of other medications 0 English Deras. [address] [place], [address], . tel:[phone] Referring Provider: [place], [address] . tel:[phone] OFFICE XJVXA-AYL-IC TAILED [employer], [address], [place], [place], [address] , tel: [phone] [place] Chronic conditions (chief complaint) Body mass index (BMI) 31.0-31.9, adultBenign hypertensionGout, unspecified cause, unspecified chronicity, unspecified siteOther and unspecified hyperlipidemiaOth er testicular hypofunctionPsori asis 0 English Deras. [address] [place], [address], [place]. tel:[phone] Referring Provider: [place], [address] . tel:[phone] PREVENTATIVE -EST: 40-64 [employer], [address], [place], [place], [address] , tel: [phone] [place] PX (chief complaint) Body mass index (BMI) 31.0-31.9, adultAdult general medical examBenign hypertensionGout, unspecified cause, unspecified chronicity, unspecified siteOther and unspecified hyperlipidemiaSki n lesion English Deras. [address] [place], [place], [address], . tel:[phone] Referring Provider: Braeden Macdonald, [place], [address] . tel:[phone] [employer], [address], [place], [place], [address] , tel: [phone] [place] HyperglycemiaBeni gn hypertensionGout, unspecified cause, unspecified chronicity, unspecified siteOther and unspecified hyperlipidemiaAdu lt general medical examScreening for malignant neoplasm of prostate English Deras. [address] [place], [address], . tel:[phone] Referring Provider: [place], [address] . tel:[phone] [employer], [address], [place], [place], [address] , tel: [phone] [place] Chronic gout without tophus, unspecified cause, unspecified siteEssential (primary) hypertensionOther and unspecified hyperlipidemiaPso riasis English Deras. [address] [place], [address], . tel:[phone] Referring Provider: [place], [address] . tel:[phone] [employer], [address], [place], [place], [address] , tel: [phone] [place] Encounter for general adult medical examination without abnormal findingsChronic gout without tophus, unspecified cause, unspecified siteOther and unspecified hyperlipidemiaOth er testicular hypofunctionEssen tial (primary) hypertension 8 English Deras. [address] [place], [address], . tel:[phone] Referring Provider: [place], [address] . tel:[phone] [employer], [address], [place], [place], [address] , tel: [phone] [place] Benign hypertensionGout, unspecified cause, unspecified chronicity, unspecified siteOther and unspecified hyperlipidemiaScr eening for malignant neoplasm of prostateEncounter for long-term (current) use of other medications English Deras. [address] [place], [address], [place]. tel:[phone] Referring Provider: [place], [address] . [phone] [employer], [address], [place], [place], [address] , tel: [phone] [place] Body mass index (BMI) 31.0-31.9, adultOlecranon bursitis of right elbowBenign essential hypertensionGout, unspecified cause, unspecified chronicity, unspecified siteTrigger little finger of right handTrigger finger, left little finger English Deras. [address] [place], [address], [place]. tel:[phone] Referring Provider: [place], [address] . tel:[phone] [employer], [address], [place], [place], [address] , tel: [phone] [place] Gout, unspecified cause, unspecified chronicity, unspecified site English Deras. [address] [place], [address], [place]. tel:[phone] Referring Provider: [place], [address] . tel:[phone] [employer], [address], [place], [place], [address] , tel: [phone] [place] Chronic gout without tophus, unspecified cause, unspecified siteLong term use of drug English Deras. [address] [place], [address], [place]. tel:[phone] Referring Provider: Braeden Macdonald, [place], [address] . tel:[phone] [employer], [address], [place], [place], [address] , tel: [phone] [place] Other testicular hypofunctionBenig n essential hypertensionHyper lipidemia, unspecified hyperlipidemia typeChronic gout without tophus, unspecified cause, unspecified site 8 English Deras. [address] [place], [address], [place]. tel:[phone] Referring Provider: Braeden Macdonald, [place], [address] . tel:[phone] [employer], [address], [place], [place], [address] , tel: [phone] [place] Gout of ankle, unspecified cause, unspecified chronicity, unspecified lateralityOlecran on bursitis of right elbow English Deras. [address] [place], [address], . tel:[phone] Referring Provider: [place], [address] . tel:[phone] [employer], [address], [place], [place], [address] , tel: [phone] [place] Left ankle pain, unspecified chronicity English Deras. [address] [place], [address], [place]. tel:[phone] Referring Provider: [place], [address] . tel:[phone] [employer] [facility], [address], [place], [place], [address] , tel: [phone] [place] Encounter for general adult medical examination without abnormal findingsBenign essential hypertensionOther testicular hypofunctionPsori asis of nail English Deras. [address] [place], [address], [place]. tel:[phone] Referring Provider: Braeden Macdonald, [address] [place], [address] . tel:[phone] [facility], [address], [place], [place], [address] , tel: [phone] [place] Other testicular hypofunctionBenig n essential hypertensionHyper lipidemia, unspecified hyperlipidemia typePsoriasis of nailSnoring 7 English Deras. [address] [place], [place], [address], . tel:[phone] Referring Provider: Braeden Macdonald, [address] [place], [address] . tel:[phone] [employer] [facility], [address], [place], [place], [address] , tel: [phone] [place] Other testicular hypofunction 6 Johan Brito. [address] [place], [place], [address], [place]. tel:[phone] Referring Provider: Daryl Merino, [address] [place], [address] . tel:[phone] [facility], [address], [place], [place], [address] , tel: [phone] [place] Elevated fasting glucoseHyperchole sterolemiaBenign essential hypertensionTinea unguiumTesticular hypofunctionEncou nter for general adult medical examination without abnormal findingsAbrasionS noringEncounter for immunizationSpeci al screening for malignant neoplasm of colon 6 Johan Brito. [address] [place], [place], [address], [place]. tel:[phone] Referring Provider: Daryl Merino, [address] [place], [address] . tel:[phone] [facility], [address], [place], [place], [address] , tel: [phone] [place] Benign essential hypertensionEncou nter for long-term (current) use of other medicationsElevat ed fasting glucoseHyperchole sterolemiaOther testicular hypofunctionSpeci al screening for malignant neoplasm of prostate May- 8 6 Johan Brito. [address] [place], [place], [address], [place]. tel:[phone] Referring Provider: Daryl Merino, [address] [place], [address] . tel:[phone] [facility] [address], [place], [place], [address] , tel: [phone] [place] Essential (primary) hypertensionPure hypercholesterole miaTesticular hypofunctionGastr oesophageal reflux disease without esophagitisPsoria sis of nail Dec-0 5 Nicolette Wu. [facility] [place], [address], [place]. tel:[phone] Referring Provider: Daryl Merino, [address] [place], [address] . tel:[phone] [facility] [address], [place], [place], [address] , tel: [phone] [place] Benign essential hypertensionDerma tophytosis of nail Naveed-0 5 Nicolette Wu. [facility] [place], [address], [place]. tel:[phone] Referring Provider: Daryl Merino, [address] [place], [address] . tel:[phone] [facility] [address], [place], [place], [address] , tel: [phone] [place] Routine general medical examination at a health care facilityHypertens ion, BenignHypercholes terolemiaPalpitat ionsSpecial screening for malignant neoplasm of colonSpecial screening for malignant neoplasm of prostateEncounter for long-term (current) use of other medicationsElevat ed fasting glucose Mar-0 3201 5 Johan Brito. [address] [place], [place], [address], [place]. tel:[phone] Referring Provider: Daryl Merino, [address] [place], [address] . tel:[phone] [facility], [address], [place], [place], [address] , tel: [phone] [place] Hypertension, BenignHypercholes terolemiaOther testicular hypofunctionGout, unspecified 4 Nicolette Wu. [address] [place], [address], [place]. tel:[phone] Referring Provider: Daryl Merino, [address] [place], [address] . tel:[phone] [facility], [address], [place], [place], [address] , tel: [phone] [place] Benign essential hypertensionOther and unspecified hyperlipidemiaOny chomycosis 3 Johan Brito. [address] [place], [place], [address], [place]. tel:[phone] Referring Provider: Daryl Merino, [address] [place], [address] . tel:[phone] [facility], [address], [place], [place], [address] , tel: [phone] [place] Long-term (current) use of other medicationsOnycho mycosis 3 Johan Brito. [address] [place] [address], [address], [place]. tel:[phone] Referring Provider: Daryl Merino, [address] [place], [address] . tel:[phone] [facility], [address], [place], [place], [address] , tel: [phone] [place] TESTICULAR HYPOFUNC NECBENIGN HYPERTENSIONOnych omycosisRoutine general medical examination at [facility] general medical examination at a health care facilityLong-term (current) use of other medications 3 Johan Brito. [address] [place], [place], [address], [place]. tel:[phone] Referring Provider: Daryl Merino, [address] [place], [address] . tel:[phone] [facility], [address], [place], [place], [address] , [place] tel: [phone] [place] Other and unspecified hyperlipidemiaUns pecified essential hypertensionLong- term (current) use of other medicationsScreen ing for malignant neoplasms of the prostateElevated fasting glucose 3 Johan Brito. [address] [place], [place], [address], [place]. tel:[phone] Referring Provider: Daryl Merino, [address] [place], [address] . tel:[phone] [facility], [address], [place], [place], [address] , tel: [phone] [place] BENIGN HYPERTENSIONTESTI CULAR HYPOFUNC NECGout, unspecifiedOnycho mycosis due to dermatophyteOther and unspecified hyperlipidemia 2 Nicolette Wu. [address] [place], [address], [place]. tel:[phone] Referring Provider: Daryl Merino, [address] [place], [address] . tel:[phone] [facility], [address], [place], [place], [address] , tel: [phone] [place] BENIGN HYPERTENSIONTESTI CULAR HYPOFUNC NECPURE HYPERCHOLESTEROLE MOnychomycosis 2 Johan Brito. [address] [place], [place], [address], [place]. tel:[phone] Referring Provider: Daryl Merino, [address] [place], [address] . tel:[phone] [facility], [address], [place], [place], [address] , tel: [phone] [place] Other and unspecified hyperlipidemiaLon g-term (current) use of other medicationsImpote nce of organic originScreening for malignant neoplasms of the prostateRoutine general medical examination at a health care facility 2 Johan Brito. [address] [place], [place], [address], [place]. tel:[phone] Referring Provider: Daryl Merino, [address] [place], [address] . tel:[phone] [facility], [address], [place], [place], [address] , [place] tel: [phone] [place] Special screening for malignant neoplasms, colon Feb- 0201 2 [facility] Jazmin. [facility] [place], [address], [place]. tel:[phone] [facility] [employer], [address], [place], [place], [address] , [place] tel: [phone] [place] Benign essential hypertensionPure hypercholesterole miaTESTICULAR HYPOFUNC NECGout, unspecifiedLONG-T ERM USE MEDS NECHYPERLIPIDEMIA NEC/NOS 1 Ilmanny Wu. [facility] [place], [address], [place]. tel:[phone] Referring Provider: Daryl Merino, [address] [place], [address] . tel:[phone] [facility], [address], [place], [place], [address] , [place] tel: [phone] [place] LONG-TERM USE MEDS NEC 1 [facility] [facility] [place], [address], [place]. tel:[phone] [employer], [address], [place], [place], [address] , [place] tel: [phone] [place] PURE HYPERCHOLESTEROLE MABN BLOOD CHEMISTRY NECBENIGN HYPERTENSION 1 Johan Brito. [address] [place], [place], [id number], [place]. tel:[phone] [facility], [address], [place], [place], [id number] , [place] tel:[phone] [place] SCRN MALIG NEOP-PROSTATETEST ICULAR HYPOFUNC NECSCREEN MALIG NEOP-COLON March- 1 [address] Brit[address]Luis[address] [place], [address], [place]. tel:[phone] [employer], [address], [place], [place], [address] , tel: [phone] [place] HYPERTENSION NOSHYPERLIPIDEMIA NEC/NOS March- 0-201 1 [address] Brit[address]Luis[address] [place], [place], [address], [place]. tel:[phone] [employer], [address], [place], [place], [address] , tel: [phone] [place] IMPOTENCE, ORGANIC ORIGN Oct-0 0 [address] [place] [address], [id number], [place]. tel:[phone] [employer], [address], [place], [place], [address] , tel: [phone] [place] SCREEN MAL NEOP-RECTUMDERMAT OPHYTOSIS OF NAIL 1-201 0 [address] [place] [address], [id number], [place]. tel:[phone] [employer], [address], [place], [place], [address] , tel:[phone] [place] CELLULITIS OF HANDINSECT BITE HAND Nov-2 3-200 9 [address] [place] [address], [id number], [place]. tel:[phone] [employer], [address], [place], [place], [address] , [place] tel: [phone] [place] PURE HYPERGLYCERIDEMIA Nov-0 5-200 9 [address] [place] [address], [id number], [place]. tel:[phone] [employer], [address], [place], [place], [address] , tel: [phone] [place] No Information [address] [place], [place], [address], . tel:[phone] [facility], [address], [place], [place], [address] , tel: [phone] [place] ACUTE SINUSITIS NOS [address] [place], [address], . tel:[phone] [facility], [address], [place], [place], [address] , tel: [phone] [place] ROUTINE MEDICAL EXAM [address] [place], [address], . tel:[phone] [employer], [address], [place], [place], [address] , tel: [phone] [place] LATERAL EPICONDYLITIS [address] [place], [place], [address], . tel:[phone] Family History Family Member Type Diagnosis Age [...] Record Payers Payer name Insurance type Covered alliance party ID Authoriza tion(s) [employer] [place] [employer] [id number] [employer] [place] [employer] [id number] [employer] [place] [employer] [id number] [employer] [place] [id number] [employer] [place] [id number] [employer] [place] [id number] [employer] [place] [id number] [employer] [place] [id number] [employer] [place] [id number] [employer] [place] [employer] [id number] Social History Type Description Quantity Date Captured [...] ordered Referral [place]: [place] [address] [facility]
[address] [place], [phone] Ordered: Referrals: Rheumatology. Zeenat Wilkins MD. Evaluation/diagnostic/treatment [...]
== END 2025-02-24 10:35 | disposition home or self-care (01) ==
PROVIDERS: Emergency Provider Nurse Practitioner Family; PCP Internal Medicine
DX: M19.011 Primary osteoarthritis, right shoulder (principal); S43.401A Unspecified sprain of right shoulder joint, initial encounter; W01.0XXA Fall on same level from slipping, tripping and stumbling without subsequent striking against object, initial encounter; I10 Essential (primary) hypertension; E78.00 Pure hypercholesterolemia, unspecified; L40.50 Arthropathic psoriasis, unspecified; M10.9 Gout, unspecified
CPT/HCPCS: 73030; 99213; A4565; G0463